=== PATIENT | female | born 1960 | race Caucasian/White ===

== ENCOUNTER 2023-05-12 08:23 | Emergency (ER) | payer OTHER, SELFPAY ==
[2023-05-12 08:31] VITALS: BP 131/55; PULSE 87; RESP 18; TEMP 36.8; O2SAT 98
--- NOTE | 2023-05-12 08:53 | ED.URI ---
HPI - URI/Sore Throat General Chief Complaint: Upper Respiratory Infection Stated Complaint: Congestion/diarrhea/chills Time Seen by Provider: 05/12/23 08:40 Source: patient, RN notes reviewed and old records reviewed Mode of arrival: ambulatory Limitations: no limitations History of Present Illness HPI Narrative: 62 year female presents to [facility] with complaints of illness since Saturday with complaints of diarrhea, cough, chills, sore throat, nasal drainage. Patient has been taking DayQuil and NyQuil for her symptoms. Patient reports that she did do a home COVID test on Saturday that did not even show a control line so she feels that she did not do it correctly. Patient reports diarrhea but does have history of Crohn's. MD elicited complaint: cough and sore throat Pertinent past history: other (Crohn's, rheumatoid arthritis) Onset (ago): day(s) (6) Pain scale (0-10): 4 Able to tolerate fluids by mouth: Yes Treatments prior to arrival: other (DayQuil and NyQuil) Related Data Allergies Allergy/AdvReac Type Severity Reaction Status Date / Time No Known Allergies Allergy Verified 05/12/23 08:45 Review of Systems Review of Systems: CONSTITUTIONAL: Reports malaise, chills, sweats, or fever. EYES: Denies visual changes, redness, or discharge. ENT: Reports rhinorrhea, congestion, sinus pain,no otalgia and positive for sore throat. CARDIOVASCULAR: Denies chest pain, palpitations, or edema. RESPIRATORY: Reports cough.? Denies dyspnea. GASTROINTESTINAL: Denies abdominal pain, nausea, vomiting, positive for diarrhea SKIN: Denies rash or itching. MUSCULOSKELETAL: Denies myalgia. NEUROLOGIC: Denies headache. All systems reviewed & are unremarkable except as noted in HPI and below PMFSH Past Medical History Medical History (Updated 05/13/23 @ 20:29 by Mariah Richmond NP) Bronchitis Crohn's disease of both small and large intestine without complication Ear infection Rheumatoid arthritis Sinusitis Surgical History Surgical History (Updated 05/13/23 @ 20:27 by Mariah Richmond NP) H/O total hysterectomy Social History Social History (Updated 05/13/23 @ 20:28 by Mariah Richmond NP) Smoking packs per day: 1 Smoking cigarettes per day: 20.0 Years smoked: 35 Smoking pack-years: 35.00 Smoking status: Current every day smoker Tobacco type: cigarettes Alcohol intake: current Alcohol use details: rare social Substance use type: does not use Living arrangements: with family Gender identity (if verbalized by the patient): Female Comments At time of signature, agree with nursing past medical, surgical, social and family history. There is no relevant family history pertinent to the presenting complaint Exam Narrative: GENERAL:Ill-appearing, well-nourished, and in no acute distress. HEAD: Normocephalic EYES: PERRLA, conjunctivae clear ENT: Nares clear, turbinates edematous and erythematous, clear discharge. Mucous membranes moist. TM pearly weber with dull light reflex bilaterally; no tragal tenderness. Oropharynx erythematous without lesions. Tonsils red enlarged and without exudate, no drooling, no hoarseness, no trismus, uvula midline.post nasal drainage NECK: Supple lymphadenopathy CHEST: Clear to auscultation, breath sounds equal. No wheezing, rhonchi, rales, or stridor. No respiratory distress, speaks in full sentences. cough, SAO2 98% on room air HEART: Regular rate and rhythm. No murmur heard. SKIN: Warm, dry, no rash. NEURO: Alert and oriented x3. PSYCH: Normal mood and affect Course Course Emergency Course: Patient is aware of diagnosis, understands and agrees to treatment plan.? Anticipatory guidance given.? Patient agrees to follow-up as directed and is aware of reasons to seek care at the emergency department. Portions of this record may have been created with voice recognition software Level of Care: Express Care Visit Vital Signs Fozia
== END 2023-05-12 09:22 | disposition home or self-care (01) ==
PROVIDERS: Emergency Provider Registered Nurse
DX: J02.0 Streptococcal pharyngitis (principal); F17.210 Nicotine dependence, cigarettes, uncomplicated; Z20.822 Contact with and (suspected) exposure to COVID-19
CPT/HCPCS: 87426; 87804; 87880; 99213; C9803; G0463

== ENCOUNTER 2024-12-21 13:19 | Emergency (ER) | payer OTHER, SELFPAY ==
[2024-12-21 13:28] VITALS: BP 114/79; PULSE 86; RESP 20; TEMP 36.7; O2SAT 97
--- OUTSIDE RECORDS SUMMARY | 2024-12-21 13:33 | XMS_ITS | Continuity of Care Document ---
Author Organization [facility] Address [address] [place] [address] Phone Care Team Providers Care Multimedia Editor Name Role Phone Gume Aviles MD Unavailable Unavailable Allergies, Adverse Reactions, Alerts Substance Reaction Status Criticality No Known Allergies Active No Inform ation Medications Medication Instructions Dosage Effective Dates (start - stop) Status Comments Prozac 10 mg capsule - Active FOLIC ACID (unknown strength) Not Available - Active Procedures Procedure Date Office/outpatient Visit, Est Office/outpatient Visit, Est Post-op Follow-up Visit Post-op Follow-up Visit Post-op Follow-up Visit Destruction Of Lesion,Conjunctiva Post-op Follow-up Visit Post-op Follow-up Visit Post-op Follow-up Visit Destruction Of Lesion,Conjunctiva No Charge Optomap Fundus Photos 016 Office/outpatient Visit, Est Eye Exam, New Patient Advance Directives Directive Yes / No Effective Date File Name No Information Encounters Encounter Description Practice Location Reason(s) For Visit Diagnoses Date Provider Providers Copied on Encounter Office/outpa tient Visit, Est [facility], [address], [place], [place], [address], [place] tel:[phone] SEC [place] DELEON Professional Follow up visit (chief complaint) Conjunctival lesion 7 Traci Dunaway. [address], [place], [place], [address], [place]. tel:[phone] Referring Provider: Ashley Thao OD, [facility] [address] [place] [address], [address]. tel:[phone] Office/outpa tient Visit, Est [facility], [address], [place], [place], [address], [place] tel:[phone] SEC Emmett DELEON Professional 3 month follow up (chief complaint) Conjunctival lesionNuclea r sclerosis of both eyes 6 Mateo Amanda. [address], [place], [place], [address], [place]. tel:[phone] Referring Provider: Ashley Thao OD, [facility] [address] [place] [address], [address]. tel:[phone] [facility], [address], [place], [place], [address], [place] tel:[phone] SEC Emmett DELEON Professional Post Op (chief complaint) No Information 6 Mateo Amanda. [address], [address] [place], [address], [place]. tel:[phone] Referring Provider: Ashley Thao OD, [facility] [address] [place] [address], [address]. tel:[phone] [facility], [address] [place] [address] [address], [place], [place], [address], [place] tel:[phone] SEC Emmett DELEON Professional 1 week PO Cryo (chief complaint) No Information 6 Mateo Amanda. [address], [address], [place], [place], [address], [place]. tel:[phone] Referring Provider: Ashley Thao OD, [facility] [address] [facility], [place], [address]. tel:[phone] Formerly [facility], [facility] [address], [place], [place], [address], [place] tel:[phone] SEC [place] Professional F/u exam, postop (chief complaint) No Information 6 Mateo Amanda. [address] [facility] [facility], [place], [place], [address], [place]. tel:[phone] Referring Provider: Ashley Thao OD, [facility] [address] [facility], [place], [address]. tel:[phone] [facility]ly [facility], [facility] [address], [place], [place], [address], [place] [phone] [facility] No Information 6 Suzy Limon. [facility] [address], [address], [place], [place], [address], [place]. tel:[phone] Referring Provider: Ashley Thao OD, [facility] [address] [facility], [place], [address]. tel:[phone] Formerly [facility], [facility] [employer] [facility] [employer] [address], [place], [place], [address], [place] [phone] SEC [place] Professional F/u exam, postop (chief complaint) No Information 6 Suzy Braxton. [facility] [address], [address], [place], [place], [address], [place]. tel:[phone] Referring Provider: Ashley Thao OD, [facility] [address] [facility], [place], [address]. tel:[phone] [facility], [facility] [place] [facility] [employer] [facility] [address], [place], [place], [address], [place] tel:[phone] SEC [place] Professional F/u exam, postop (chief complaint) No Information 6 Mateo Amanda. [address], [place], [place], [address], [place]. tel:[phone] Referring Provider: Ashley Thao OD, [facility] [address] [place], [address]. tel:[phone] [facility], [facility] [address], [place], [place], [address], [place] tel:[phone] SEC [place] Professional F/u exam, postop (chief complaint) No Information 6 Mateo Amanda. [address], [address] [place], [address], [place]. tel:[phone] Referring Provider: Ashley Thao OD, [facility] [address] [place], [address]. tel:[phone] [facility], [facility] [address], [place], [place], [address], [place] tel:[phone] [facility] No Information 6 Suzy Braxton. [facility] [address], [address], [place], [place], [address], [place]. tel:[phone] Referring Provider: Ashley Thao OD, [facility] [address] [place], [address]. tel:[phone] Office/outpa tient Visit[facility], [address], [place], [place], [address], [place] tel:[phone] SEC [place] Professional floaters (chief complaint) No Information 6 Eucha Braxton. [facility] [address], [address], [place], [place], [address], [place]. tel:[phone] Referring Provider: Vasiliy Rob, [address], [place], [address] . tel:[phone] [facility]ly [facility] Eye [facility], [address], [place], [place], [address], [place] tel:[phone] STEVE DELEON Professional Nodular Episcleritis OD (chief complaint) No Information 6 Mateo Amanda. [address] [facility] [address], [place], [place], [address], [place]. tel:[phone] Referring Provider: Vasiliy Rob, [address], [place], [address] . tel:[phone] Family History Family Member Type Diagnosis Age At Onset Paternal grandmother Problem (finding) Diabetes mellit us Payers Payer name Insurance type Covered libertarian ID Authorjaretha rafatrashida(s) [facility] Commercial CI [id number] Social History Type Description Quantity Date Captured Comments Alcohol Use Details Unknown Caffeine Use Details Unknown Tobacco Use Status Heavy cigarette smok er (20-39 cigs/day) Smoking Status Heavy tobacco smoker Sex Female Chief Complaint And Reason For Visit From encounter dated '01/07/2017 15:15'. Follow up visit (chief complaint). Description: The 56 year old female presents for a 6 month IOP check. Patient denies any changes in vision ou. Patient has hx of excisional biopsy of right limbal conj. lesion. Patient uses systane bid ou. Reason For Referral Reason For Referral No Information Plan Of Treatment Date Type Action Status Goal Tobacco cessation counseling completed Goal Tobacco cessation counseling completed History Of Present Illness Encounter Date Complaint History Of Prese nt Illness Follow up visit The 56 year old female presents for a 6 month IOP check. Patient denies any changes in vision ou. Patient has hx of excisional biopsy of right limbal conj. lesion. Patient uses systane bid ou. 3 month follow up The 55 year ol d female presents for 3 month follow up in the right eye. 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 Pt states no chnages since last exam. Pt states no pain/discomfort. Pt using AFT 2-3 times a day, AFT erin QHS. 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 Pt states 1.5 weeks ago she developed a sore throat which went into an ear infection and had swelling of OD and soreness around orbit temporal lasting 2-3 days. Pt went to PCP and was put on antibiotics, is finished taking at this time. Pt denies any pain at this time but experiences a pulling feeling superior OD x 1.5 weeks and feels her OD sticks our farther than OS. Pt states v/a OU seems stable. Pt is not using any gtts. 1 week PO Cryo The 55 year old female presents for 1 week PO Cryo in the right eye. Pt using Pred QID OD and Poly QID OD. Pt states she still has a red spot on OD but states she is not having any pain, irritation or discomfort. Pt states no problems OU and VA seems stable. F/u exam, postop The 55 year old female presents for a 1 day post op to Cryo ablasion of biopsy site from carcinoma excision OD. Patient to begin Pred and Poly qid OD. Patient denies any pain or discomfort. F/u exam, postop The 55 year old female presents for post op of conj. lesion removal with biopsy OD. Patient saw Dr. Galindo last week for post op and biopsy results. Dr. Galindo wanted patient to see Dr. Almonte today. Patient states OD is doing good. Patient is using Pred tid OD and ran out of Poly. F/u exam, postop The 55 year old female presents for a 2 week post op conj excision of lesion OD. Patient is using Pred and Poly qid OD. Patient c/o OD was doing ok and now sees another bump. Patient is anxious for results of biopsy. F/u exam, postop The 55 year old female presents fora 1 day post op to Excisional Biopsy of right Limbal conj. lesion OD. Patient to begin Poly and Pred qid OD. Patient denies any pain or discomfort. floaters The 55 year old female presents for a evaluation of Conj. lesion OD per Dr. Galindo. Patient ran out of Pred 3 days ago. Nodular Episcleritis OD The 55 y ear old female presents for evaluation of Nodular Episcleritis OD. Pt is currently using Prednisolone TID OU. Pt states that OU has been red and irritated for last several months and only OD developed nodules. Pt has hx of RA, Crohn's Disease. Pt is currently in Crohn's remission. Pt has noticed floaters but no flashes. Functional Status Date Functional Assessmen t No Information Instructions Date Instruction Additional Infor dean Conjunctival lesion - Educational material given Related to Conjunctival lesion Impression/Plan - OD looks good, IOP within normal range. Return to clinic in 6 months for follow up with Dr Galindo or sooner with any problems. Follow up - Return i n 6 months with Vasiliy Galindo M.D. for follow up exam. Impression/Plan - Th ere is no evidence of recurrence of conjunctival tumor. The vision is stable. Patient states the eyes are more comfortable since she began using the AFT TID and the AFT gel at night. Recommend patient continue this regimen OU. Recommend patient return in 6 months or sooner with problems. 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 There is one small elevation at the limbus at 8:00 that was measured today and we will follow closely. Recommend patient increase the use of AFT to 2-3 times daily and continue the use of AFT erin QHS. Informed patient we will send a letter to Inderjit Smalls MD regarding her previous diagnosis and treatment. Recommend patient return in 3 months or sooner with problems. Follow up - 3 month follow up Impression/Plan - 1 week PO s/p Cryo ablation of biopsy site from conjunctival carcinoma excision OD. Patient is healing well. There is no evidence of recurrence of the carcinoma upon todays exam. Instructed patient to stop the Polytrim as of today. Patient will continue the Prednisolone QID OD for 1 week, then BID x 2 weeks, then stop. Recommend patient return in 1 month or sooner. Follow up - Return t o clinic in 1 month for f/u Follow up - Return t o clinic as scheduled Impression/Plan - 1 day PO Cryo Ablation of the biopsy site from carcinoma excision OD. Patient is healing well and is experiencing little to no discomfort. Recommend she return in 1 week or sooner with problems. sched cryo OD Related to Surge ry follow-up examination Impression/Plan - Di scussed dx with pt. Discussed Cryo for additional treatment. Explained this type of cancer can manifest itself within various parts of her body. Would rec regular exams with her PCP and she understands we will monitor her closely as well. Discussed r/a/b of this procedure and she understands she can schedule when desired. Related to Surgery follow-up examination Follow up - sched cryo OD Relate d to Surgery follow-up examination Impression/Plan - Di scussed results of Conjunctival Excisional Biopsy OD today. 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 There is no clinical evidence of recurrence at this time. Given these results, patient will follow up with Dr. Almonte again next Saturday to discuss next steps in treatment. Letter sent to Dr. Thao. Follow up - Follow u p on Saturday with LAG - No dilation required Impression/Plan - 1 Day PO s/p Conjunctival lesion removal OD. Patient is healing well and there is no further conjunctival lesion present. Explained it may take a few days to 1 week to have the result of the biopsy and we will contact her once we receive the report. Medication instillation reviewed with patient. Recommend she return in 2 weeks or sooner with problems. Follow up - 2 week P O from conjunctival lesion removal Impression/Plan - Di scussed conjunctival lesion OD. Explained to patient there are several different things it could be. Discussed the possibility of atypical pingueculitis, a form of skin cancer or a Rheumatoid nodule. Recommend the lesion be removed and biopsied for an answer. Schedule patient for conjunctival lesion removal OD at the surgery center. Risks, benefits and alternatives pertaining to conjunctival lesion removal reviewed with patients. Patient elects to proceed with conjunctival lesion removal. Follow up - Schedule Conjunctival Lesion removal with biopsy OD Conjunctival lesion - Educational material provided Related to Conjunctival lesion Follow up - Refer to LAG for evaluation and treatment. Appt. scheduled for next Saturday Impression/Plan - Di scussed conjunctival lesion on temporal OD. 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 Lesion has some features on exam today that are concerning for possible conjunctival SAVANNAH/squamous cell carcinoma including a dilated feeder vessels, corkscrew vessels, and mild leukoplakia. Lesion may also less likely represent atypical pingueculitis. Refer to Dr. Almonte (cornea specialist) for evaluation and treatment. Appointment made for next week. Letter sent to Dr. Thao from today's visit. Assessments Type Assessment Date assessment Conjunctival lesion Patient Care Teams Name Effective Dates (start - stop) Status Members No Information
--- OUTSIDE RECORDS SUMMARY | 2024-12-21 13:33 | XMS_ITS | Data Portability ---
[facility] [address] [place] [address] Care Team Providers Care Tick Sewer Name Role Phone AMY SIN Primary Care Provider MAGGY MICHEL Seo Consultant Assessment No assessment recorded. Plan of Treatment Reminders Order Date Submit Date Provider Last Modified By Organization Details Last Modified Time Details Appointments ANY 15 2024 09:30A M NADEGE ReddyN, NOODLE CATALYST MAKER-C Not available Not available Not available Lab TSH, ultra-sen sitive, serum 2024 025 NAYA [facility], [address], [place], [address], 08/12/2024 12:09:45 CMP, serum or plasma 2024 025 NAYA [facility], [address], [place], [address], 08/12/2024 12:09:44 lipid panel, serum 2024 025 NAYA [facility], [address], [place], [address], 08/12/2024 12:09:42 CBC 2024 025 NAYA [facility], [address], [place], [address], 08/12/2024 12:09:51 cobalamin and folate panel, serum 2024 025 NAYA [facility], [address], [place], [address], 08/12/2024 12:09:46 vitamin D, 25-hydrox y, total, serum 2024 025 NAYA [facility], [address], [place], [address], 08/12/2024 12:09:52 ELDER (antinucl ear antibodie s) screen, serum 2024 025 NAYA [facility], [address], [place], [address], 08/12/2024 12:09:41 testoster one, total, serum 2024 025 NAYA [facility], [address], [facility] [address], [place], [address], 08/12/2024 12:09:47 prolactin , serum 2024 025 NAYA [facility], [address], [place], [address], 08/12/2024 12:09:48 amylase + lipase, serum 2024 025 NAYA [facility], [address], [place], [address], 08/12/2024 12:09:50 Referral None recorded. Procedures None recorded. Surgeries None recorded. Imaging None recorded. Medication Orders None recorded. Patient TargetsNo targets recorded. Patient Instructions Encounter Date Encounter Id Patient Instructions Last Modified By Organization Details Last Modified Time 08/11/2024 [id number] influenza (flu) vaccine: care instructions Not available 08/11/2024 14:41:49 A healthy lifestyle: care instructions Not available 08/11/2024 14:41:49 Quitting Tobacco : Care Instructions Not available 08/11/2024 14:41:48 Increase intake of fresh fruits, and vegetables. Avoid packaged foods and fast foods. Follow a low salt diet, drink at least 8-10 8oz glasses of water a day, exercise most days of the week. Take all medications as prescribed. Keep appointments with PCP and all specialists. Not available 08/12/2024 13:17:02 dwp labs needed, plan pending results Not available 08/12/2024 13:17:11 Reason for Referral None Reported. Results Created Date Observation Date Name Description Value Unit Range Abnormal Flag Note LastModifiedBy Organization Detail LastModifiedTime 08/11/1908/12/2024 ANTIN UCLEA R AB MULTI PLEX RFX 9 ELDER direct NEGATI VE negati ve Not Available [facility] ([facility]) [address] [place], [address], 08/12/2024 12:09:41 08/11/19 25 08/12/2024 LIPID PANEL cholesterol, total 322 mg/dL 100-19 9 above high normal Not Available [facility] ([facility]) [address] [place], [address], 08/12/2024 12:09:42 08/11/19 25 08/12/2024 LIPID PANEL triglyceride s 249 mg/dL 0-149 above high normal Not Available [facility] ([facility]) [address] [place], [address], 08/12/2024 12:09:42 08/11/19 25 08/12/2024 LIPID PANEL HDL cholesterol 50 mg/dL >39 Not Available [facility] ([facility]) [address] [place], [address], 08/12/2024 12:09:42 08/11/19 25 08/12/2024 LIPID PANEL VLDL cholesterol evans 50 mg/dL 5-40 above high normal Not Available [facility] ([facility]) [address] [place], [address], 08/12/2024 12:09:42 08/11/19 25 08/12/2024 LIPID PANEL LDL chol calc ([facility]) 222 mg/dL 0-99 above high normal Not Available [facility] ([facility]) [address] [facility], [place], [address], 08/12/2024 12:09:42 08/11/19 25 08/12/2024 LIPID PANEL LDL calc comment: COMMEN T Consi leonid evalu ating for Famil ial Hyper felix stero lemia (FH), if clini jovanny indic ated. Not Available [facility] ([facility]) [address] [facility], [place], [address], 08/12/2024 12:09:42 08/11/19 25 08/12/2024 COMP. METAB OLIC PANEL (14) glucose 81 mg/dL 70-99 Not Available [facility] ([facility]) [address] [facility], [place], [address], 08/12/2024 12:09:44 08/11/19 25 08/12/2024 COMP. METAB OLIC PANEL (14) BUN 14 mg/dL 8-27 Not Available [facility] ([facility]) [address] [facility], [place], [address], 08/12/2024 12:09:44 08/11/19 25 08/12/2024 COMP. METAB OLIC PANEL (14) creatinine 0.86 mg/dL 0.57-1 .00 Not Available [facility] ([facility]) [address] [facility], [place], [address], 08/12/2024 12:09:44 08/11/19 25 08/12/2024 COMP. METAB OLIC PANEL (14) eGFR 76 mL/mi n/1.7 3 >59 Not Available [facility] ([facility]) [address] [place], [address], 08/12/2024 12:09:44 08/11/19 25 08/12/2024 COMP. METAB OLIC PANEL (14) BUN/creatini ne ratio 16 12-28 Not Available [facility] ([facility]) [address] [place], [address], 08/12/2024 12:09:44 08/11/19 25 08/12/2024 COMP. METAB OLIC PANEL (14) sodium 138 mmol/ L 134-14 4 Not Available [facility] ([facility]) [address] [place], [address], 08/12/2024 12:09:44 08/11/19 25 08/12/2024 COMP. METAB OLIC PANEL (14) potassium 5.0 mmol/ L 3.5-5. 2 Not Available [facility] ([facility]) [address] [place], [address], 08/12/2024 12:09:44 08/11/19 25 08/12/2024 COMP. METAB OLIC PANEL (14) chloride 99 mmol/ L 96-106 Not Available [facility] ([facility]) [address] [place], [address], 08/12/2024 12:09:44 08/11/19 25 08/12/2024 COMP. METAB OLIC PANEL (14) carbon dioxide, total 23 mmol/ L 20-29 Not Available [facility] ([facility]) [address] [facility] [place], [address], 08/12/2024 12:09:44 08/11/19 25 08/12/2024 COMP. METAB OLIC PANEL (14) calcium 10.5 mg/dL 8.7-10 .3 above high normal Not Available [facility] ([facility]) [address] [facility] [place], [address], 08/12/2024 12:09:44 08/11/19 25 08/12/2024 COMP. METAB OLIC PANEL (14) protein, total 7.6 g/dL 6.0-8. 5 Not Available [facility] ([facility]) [address] [facility] [place], [address], 08/12/2024 12:09:44 08/11/19 25 08/12/2024 COMP. METAB OLIC PANEL (14) albumin 4.7 g/dL 3.9-4. 9 Not Available [facility] ([facility]) [address] [facility], [place], [address], 08/12/2024 12:09:44 08/11/19 25 08/12/2024 COMP. METAB OLIC PANEL (14) globulin, total 2.9 g/dL 1.5-4. 5 Not Available [facility] ([facility]) [address] [facility], [place], [address], 08/12/2024 12:09:44 08/11/19 25 08/12/2024 COMP. METAB OLIC PANEL (14) bilirubin, total 0.4 mg/dL 0.0-1. 2 Not Available [facility] ([facility]) [address] [facility], [place], [address], 08/12/2024 12:09:44 08/11/19 25 08/12/2024 COMP. METAB OLIC PANEL (14) alkaline phosphatase 88 IU/L 44-121 Not Available [facility] ([facility]) [address] [facility], [place], [address], 08/12/2024 12:09:44 08/11/19 25 08/12/2024 COMP. METAB OLIC PANEL (14) AST (SGOT) 17 IU/L 0-40 Not Available [facility] ([facility]) [address] [facility], [place], [address], 08/12/2024 12:09:44 08/11/19 25 08/12/2024 COMP. METAB OLIC PANEL (14) ALT (SGPT) 13 IU/L 0-32 Not Available [facility] ([facility]) [address] [facility], [place], [address], 08/12/2024 12:09:44 08/11/19 25 08/12/2024 TSH RFX ON ABNOR MAL TO FREE T4 TSH 2.470 uIU/m L 0.450- 4.500 Not Available [facility] ([facility]) [address] [place], [address], 08/12/2024 12:09:45 08/11/19 25 08/12/2024 VITAM IN B12 AND FOLAT E vitamin B12 549 pg/mL 232-12 45 Not Available [facility] ([facility]) [address] [facility], [place], [address], 08/12/2024 12:09:46 08/11/19 25 08/12/2024 VITAM IN B12 AND FOLAT E folate (folic acid), serum 16.8 NG/mL >3.0 A serum folat e dhruv ntrat ion of less than 3.1 ng/mL is consi dered to repre sent clini evans defic iency . Not Available [facility] ([facility]) [address] [facility], [place], [address], 08/12/2024 12:09:46 08/11/19 25 08/12/2024 TESTO STERO NE testosterone 39 NG/dL 3-67 Not Available [facility] ([facility]) [address] [facility], [place], [address], 08/12/2024 12:09:47 08/11/19 25 08/12/2024 PROLA CTIN prolactin 5.5 NG/mL 3.6-25 .2 Not Available [facility] ([facility]) [address] [place], [address], 08/12/2024 12:09:48 08/11/1908/12/2024 ANTON+L IPASE amylase 69 U/L 31-110 Not Available [facility] ([facility]) [address] [place], [address], 08/12/2024 12:09:49 08/11/1908/12/2024 ANTON+L IPASE lipase 36 U/L 14-72 Not Available [facility] ([facility]) [address] [facility], [place], [address], 08/12/2024 12:09:49 08/11/1908/12/2024 CBC, PLATE LET, NO DIFFE RENTI AL WBC 10.3 x10e3 /uL 3.4-10 .8 Not Available [facility] ([facility]) [address] [facility], [place], [address], 08/12/2024 12:09:51 08/11/1908/12/2024 CBC, PLATE LET, NO DIFFE RENTI AL RBC 5.25 x10e6 /uL 3.77-5 .28 Not Available [facility] ([facility]) [address] [facility], [place], [address], 08/12/2024 12:09:51 08/11/1908/12/2024 CBC, PLATE LET, NO DIFFE RENTI AL hemoglobin 16.7 g/dL 11.1-1 5.9 above high normal Not Available [facility] ([facility]) [address] [place], [address], 08/12/2024 12:09:51 08/11/1908/12/2024 CBC, PLATE LET, NO DIFFE RENTI AL hematocrit 51.2 % 34.0-4 6.6 above high normal Not Available [facility] ([facility]) [address] [place], [address], 08/12/2024 12:09:51 08/11/1908/12/2024 CBC, PLATE LET, NO DIFFE RENTI AL MCV 98 fL 79-97 above high normal Not Available [facility] ([facility]) [address] [place], [address], 08/12/2024 12:09:51 08/11/1908/12/2024 CBC, PLATE LET, NO DIFFE RENTI AL MCH 31.8 pg 26.6-3 3.0 Not Available [facility] ([facility]) [address] [place], [address], 08/12/2024 12:09:51 08/11/19 25 08/12/2024 CBC, PLATE LET, NO DIFFE RENTI AL MCHC 32.6 g/dL 31.5-3 5.7 Not Available [facility] ([facility]) [address] [facility], [place], [address], 08/12/2024 12:09:51 08/11/19 25 08/12/2024 CBC, PLATE LET, NO DIFFE RENTI AL RDW 12.9 % 11.7-1 5.4 Not Available [facility] ([facility]) [address] [facility], [place], [address], 08/12/2024 12:09:51 08/11/1908/12/2024 CBC, PLATE LET, NO DIFFE RENTI AL platelets 517 x10e3 /uL 150-45 0 above high normal Not Available [facility] ([facility]) [address] [place], [address], 08/12/2024 12:09:51 08/11/1908/12/2024 VITAM IN D, 25-HY DROXY vitamin D, 25-hydroxy 19.5 NG/mL 30.0-1 00.0 below low normal Vitam in D defic iency has been defin ed by the Insti tute of Medic ine and an Endoc rine Socie ty pract ice guide line as a level of serum 25-OH vitam in D less than 20 ng/mL (1,2) . The Endoc rine Socie ty went on to furth er defin e vitam in D insuf ficie ncy as a level betwe en 21 and 29 ng/mL (2). 1. IOM (Inst itute of Medic ine). 2010. Yayna ry refer ence selma es for calci um and DPoly tee [place]: The [facility] Press . 2. Rosenda olivo MF, Apolinar perez [place], [place] off-F errar i RUTH, et al. Evalu ation , treat ment, and preve ntion of vitam in D defic iency : an Endoc rine Socie ty clini evans pract ice guide line. JCEM. 2010; 96(7) :1911 -30. Not Available [facility] ([facility]) [address] [facility], [place], [address], 08/12/2024 12:09:52 08/28/1908/28/2024 US, abdom en, compl ete No observ ation record ed. [address], [address], 09/09/2024 14:35:51 Result Notes None recorded. Problems Name Problem SNOMED Code Status Onset Date Resolution Date Notes Provider Name and Address Organization Details Recorded Time Excessive growth of facial hair 237267891 Active 025 Amy Sin APN, FNP-C Attn: Quynh g,[address] [facility], [place], [place], [address] [place] [address] 2, [facility] 5 14:40:01 Smoker 11352421 Active 025 Amy Sin APN, FNP-C Attn: Quynh g,[address] [facility], [place], [address], [facility] 5 14:41:02 Overweight 502085828 Active 025 Amy Sin APN, FNP-C Attn: Quynh g,[address] [facility], [place], [address], [facility] 5 14:41:04 Right upper quadrant pain 560435199 Active 025 Amy Sin APN, FNP-C Attn: Quynh g,[address] [facility], [place], [address], [facility] 5 13:17:22 Problem Notes None recorded. Procedures Surgical History Date Name Laterality Status Provider Name and Address Organization Details Recorded Time 07/22/18 96 Total hysterectomy completed Genoveva Bunch [facility] 08/11/2024 14:15:23 Imaging Results None recorded. Procedure Notes None recorded. Medical Equipment None Reported. Allergies No known drug allergies Medications Name Sig Start Date Stop Date Status Note LastModified by Organization Details LastModified Time atorvastatin 80 mg tablet Take 1 tablet every day by oral route. 2024 active Not Available Not Available Not Avai lable spironolactone 100 mg tablet active Not Available Not Availabl e Not Available Vitals Date Recorded Body height Body mass index (BMI) Body weight Oxygen saturation Oxygen saturation in Arterial blood by Pulse oximetry Respiratory rate Body temperature Heart rate Systolic blood pressure Diastolic blood pressure Provider Name and Address Organization Details Last Updated DateTime 5 163.83 cm 27.4 kg/m2 94752.9 6 g 99 % 99 % 16 /min 97.5 [degF] 74 /min 112 mm[Hg] 72 mm[Hg] [facility] [place] [facility] 14:26:11 Social History Question Answer Notes LastModified by Organizat ion Details LastModified Time Tobacco Smoking Status Current Every Day Smoker JAX Rene[facility] 08/11/2024 14:18:05 Are You Blind Or Do You Have Difficulty Seeing? No Information not available 08/11/2024 What Is Your Level Of Caffeine Consumption? Heavy Coffee Information not available 08/11/2024 In The 14 Days Before Symptom Onset, Have You Had Close Contact With A Laboratory-confi rmed COVID-19 While That Case Was Ill? No Information not available 08/11/2024 In The 14 Days Before Symptom Onset, Have You Had Close Contact With A Person Who Is Under Investigation For COVID-19 While That Person Was Ill? No Information not available 08/11/2024 Have You Been To An Area Known To Be High Risk For COVID-19? No Information not available 08/11/2024 Are You Deaf Or Do You Have Serious Difficulty Hearing? No Information not available 08/11/2024 What Type Of Diet Are You Following? REGULAR Information not available 08/11/2024 Are There Any Guns Present In Your Home? Yes Information not available 08/11/2024 What Was The Date Of Your Most Recent Tobacco Screening? 08/11/2024 Information not available 08/11/2024 How Many Children Do You Have? 2 1 Child Gaurdianship Of Grandson Information not available 08/11/2024 What Is Your Relationship Status? Information not available 08/11/2024 Do You Use Your Seat Belt Or Car Seat Routinely? Yes Information not available 08/11/2024 Do You Have Smoke And Carbon Monoxide Detectors In Your Home? Yes Information not available 08/11/2024 At What Age Did You Start Smoking Tobacco? 14 Information not available 08/11/2024 Are You Passively Exposed To Smoke? Yes Information not available 08/11/2024 How Much Tobacco Do You Smoke? 1 PPD Information not available 08/11/2024 Do You Use Sunscreen Routinely? Yes Information not available 08/11/2024 Has Tobacco Cessation Counseling Been Provided? No Information not available 08/11/2024 How Many Years Have You Smoked Tobacco? 60 08/11/24 Information not available 08/11/2024 Sex: Female Functional Status Question Answer Note LastModified by Organizat ion Details LastModified Time Do you use any illicit or recreational drugs? Yes occ marijuanna Information not available 08/11/2024 Do you or have you ever used any other forms of tobacco or nicotine? No Information not available 08/11/2024 What is your level of alcohol consumption? None Information not available 08/11/2024 Are you currently employed? No retired Information not available 08/11/2024 Are you able to care for yourself? Yes Information not available 08/11/2024 What is your exercise level? None Information not available 08/11/2024 Mental Status Question Answer Note LastModified by Organization D etails LastModified Time Do you feel stressed (tense, restless, nervous, or anxious, or unable to sleep at night)? [id number] Information not available 08/11/2024 Family History Relationship Description Onset Age of this Age Resolved Age Notes LastModified by Organization Details LastModified Time Paternal Grandmother Diabetes mellitus [email or web address] Not available 07/23 14:16:05 Father Myocardial infarction 44 jschulterma Not available 14:16:21 Mother Malignant neoplasm of lung jschulterma Not available 07/23 14:16:54 Brother Hypercholest erolemia jschulterma Not available 07/23 11:00:14 Medical History Condition Response Coronary Artery Disease N Atrial Fibrillation N High Blood Pressure N Depression N COPD N Blood Clots N Anxiety Disorder N Muscle, Joint, or Bone Problems N Arthritis Y Acid Reflux (GERD) N Cancer Y Stroke N High Cholesterol N Liver Disease N Schizophrenia N Headaches N Thyroid Problems N Kidney or Bladder Problems N GI Problems Y Have you had a mammogram in the last yea r? N Eating Disorder N Skin Problems N Anemia N Heart Attack ([place]) N Diabetes N Seizures/Epilepsy N Have you had a colonoscopy in the last 1 0 years? N Asthma N Allergies Y Substance Abuse N Hepatitis N Heart Failure N Osteoporosis N Gynecological History Statement/Question Response Menses Monthly Y Age at Menarche 14 Current Control Method Hysterectom y Age at First Child 22 Obstetrics History GPAL:G 2 P 2 0 0 1 Type Value Full Term 2 Living 1 Total 2 Immunizations Vaccine Type Date Status Note Provider Nam e and Address Organization Details Recorded Time zoster recombinant 9 completed Amy Sin APN, FNP-C Attn: Accounting,[address] [place], [address], [facility] 08/11/2024 14:38:28 COVID-19, mRNA, LNP-S, PF, 30 mcg/0.3 mL dose 1 completed Amy Sin APN, FNP-C Attn: Accounting,[address] [facility], [place], [place], [address] [place] [address], [facility] 08/11/2024 14:38:28 COVID-19, mRNA, LNP-S, PF, 30 mcg/0.3 mL dose 1 completed Amy Sin, SENIOR WINDOWS SYSTEMS ADMINISTRATOR, NOODLE CATALYST MAKER-C Attn: Accounting,[address] [facility], [place], [place], [address] [place] [address], [facility] 08/11/2024 14:38:28 pneumococcal polysaccharide PPV23 9 completed Amy Sin, SENIOR WINDOWS SYSTEMS ADMINISTRATOR, NOODLE CATALYST MAKER-C Attn: Accounting,[address] [facility], [place], [place], [address] [place] [address], [facility] 08/11/2024 14:38:28 Tdap 9 completed Amy Sni, SENIOR WINDOWS SYSTEMS ADMINISTRATOR, NOODLE CATALY[employer] MAKER-C Attn: Accounting,[address] [facility], [place], [place], [address] [place] [address], [facility] 08/11/2024 14:38:28 Influenza, split virus, trivalent, PF 5 completed Amy Sin, SENIOR WINDOWS SYSTEMS ADMINISTRATOR, NOODLE CAT[employer] MAKER-C Attn: Accounting,[address] [facility], [place], [address] [place] [address], [facility] 08/11/2024 14:38:28 Hep A, ped/adol, 2 dose 0 completed Amy Sin, SENIOR WINDOWS SYSTEMS ADMINISTRATOR, NOODLE CATALY[employer] MAKER-C Attn: Accounting,[address] [facility], [place], [address] [place] [address], [facility] 08/11/2024 14:38:28 Influenza, split virus, quadrivalent, PF 9 completed Amy Sin, SENIOR WINDOWS SYSTEMS ADMINISTRATOR, NOODLE CATALYST MAKER-C Attn: Accounting,[address] [facility], [place], [address] [place] [address], [facility] 08/11/2024 14:38:28 Influenza, split virus, trivalent, preservative 5 completed Amy Sin, SENIOR WINDOWS SYSTEMS ADMINISTRATOR, NOODLE CATALYST MAKER-C Attn: Accounting,[address] [facility], [place], [address] [place] [address], [facility] 08/12/2024 13:16:42 Pneumococcal conjugate PCV20, polysaccharide [id number] conjugate, adjuvant, PF 5 completed Amy Sin APN, HOMER-C Attn: Accounting,[address], [place], [address], [place] [facility] [place] 08/12/2024 13:16:42 Past Encounters Encounter ID Performer Location Encounter Start Date Encounter Closed Date Diagnosis/Indication Diagnosis SNOMED-CT Code Diagnosis ICD10 Code Diagnosis Note [id number] Jolene rg, MD [facility] (Adult Med) [address] [place] [address] 08/11/2024 13:51:33 08/18/2024 10:12:25 Adult health examination 083003563 Z00.01 Encouraged routine TOOL STRAIGHTENER, vision, dental exams, well balanced diet. Excessive growth of facial hair 777557319 L68.2 on aldactone from derm Administra tion of influenza vaccine 03154742 Z23 Overweight 543304392 E66 .3 advised low fat, low cholestero l diet, regular exercise and weight reduction. Smoker 90645246 F17.200 Smoking cessation encouraged . Right uppe r quadrant pain 066036376 R10.11 exam wnl in office; states pain is random but more frequent if putting on socks;hx of crohns as well, intermitte nt pain, offered labs and US, pt would like to wait on US for nowpt also declines referral Fatigue 89151785 R53.83 will check labs Administra tion of pneumococcal vaccine 84266615 Z23 Health Concerns Section Related Observation LastModified by Organization Detai ls LastModified Time None Recorded Concern Status LastModified by Organization Details LastModified Time None Recorded Advance Directives Directive None Recorded Payers Encounter Date Sequence Insurance Name Policy Number Policy Shaw Covered Member ID Shaw Member ID Guarantor Name 08/11/2024 1 LULA CLAUDIO FROM [employer] ([employer]) [id number] Luiza Canales [id number] Luiza Canales Notes Date Note Type Note Provider Name and Address Organization Details Recorded Time 08/11/2024 text/html last pcp was dr caleb Velasquez in 2021 pt c/o hair growth on face- started almost a year ago. tried lazer hair removal and did not help. just started seeing feeder associate randi brown. saw dermatology and started on low dose bp meds but did not help. pt c/o fatigue right upper quadrant pain intermittent, Amy Liza, SENIOR WINDOWS SYSTEMS ADMINISTRATOR, [employer]ODLE [employer] MAKER-C Attn: Accounting,[address] [facility], [place], [address], [place] [facility] 08/12/2024 13:19:48 OBGyn Episode No OBEpisode recorded.
--- OUTSIDE RECORDS SUMMARY | 2024-12-21 13:33 | XMS_ITS | Clinical Summary ---
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 [employer],non-owned Affiliates and Associated Physician Practices is amultiple site organization consisting of ambulatory clinics and hospital sitesin [place] and [place]. This disclosure is being madepursuant to the Care Everywhere program and may not contain all information available regarding this patient. Last updated 18.[facility] [employer] Allergies Active Allergy Reactions Criticality Noted Date Comments Leflunomide 11/11/2014 Painful rash Cefaclor 09/16/2014 Methotrexate 10/06/2014 Elevated liver enzymes and severe hand peeling Hydroxychloroquine Urticaria,Itching 11/01/2014 Diclofenac Epolamine 10/06/2014 Elevated liver enzymes Medications * Be aware that medications may not be up to date on this document. Alwaysverify current medications with the patient. FLUoxetine (PROZAC) 40 MG capsule Take 40 mg by mouth 2 times daily. Active Acetaminophen- Codeine (TYLENOL/CODEI NE #3) 300-30 MG TABS Take by mouth. 1 1/2 tab bid prn Active folic acid (FOLVITE) 1 MG tablet Take 1 mg by mouth once daily. Active Multiple Vitamins-[place] als (HAIR/SKIN/BIN LS PO) Take by mouth once daily. Active Glucosamine-Ch ondroitin 2023-6854 MG/30ML LIQD Take by mouth 2 times daily. Active Multiple Vitamin (MULTI VITAMIN DAILY PO) Take by mouth once daily. Active Cyanocobalamin (VITAMIN B 12 PO) Take by mouth once daily. Active predniSONE (DELTASONE) 5 MG tablet Take 1 Tab by mouth once daily. 5 Active methylPREDNISo lone (MEDROL DOSEPAK) 4 MG tablet Take by mouth as directed. 21 Packet 0 5 Active predniSONE (DELTASONE) 5 MG tablet Take 1 Tab by mouth 2 times daily. 90 Tab 5 5 Active etanercept (ENBREL SURECLICK) 50 MG/ML injection Inject 50 mg subcutaneously every 7 days. 4 Pen 5 5 Active Active Problems Problem Noted Date Diagnosed Date Crohn's disease 09/19/2014 Rheumatoid arthritis 09/16/2014 Overview (05/29/2015): Family History Medical History Relation Name Comments Other Father heart attack Other Mother ra, cancer [facility] and lung Other Sister 2 ra, lymphoma Relation Name Status Comments Brother Alive 2 Father Mother Alive Sister 1 Alive 1 Sister 2 Social History Tobacco Use Types Packs/Day Years Used Date Smoking Tobacco: Every Day Smokeless Tobacco: Never Alcohol Use Standard Drinks/Week Comments No 0 (1 standard drink = 0.6 oz pur e alcohol) Comments Unknown Sex and Gender Information Value Date Recorded Sex Assigned at Not on file 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 Gender Identity Not on file Sexual Orientation Not on file Last Filed Vital Signs Vital Sign Reading Time Taken Comments Blood Pressure 128/80 11/15/2014 3:56 PM CDT Pulse 80 11/15/2014 3:56 PM CDT Temperature - - Respiratory Rate - - Oxygen Saturation - - Inhaled Oxygen Concentration - - Weight 79.4 kg (175 lb) 11/15/2014 3:56 PM CDT Height - - Body Mass Index - - Plan of Treatment Health Maintenance Due Date Last Done Comments COLOGUARD (AGES 45-75) - COL ON CA SCREENING 1961 COLON MONITORING 1961 COLONOSCOPY - COLON CA SCREENING 1961 CT COLONOGRAPHY - COLON CA SCREENING 1961 Colorectal Cancer Screening 1961 FIT - COLON CA SCREENING 1961 FLEX SIG - COLON CA SCREENING 1961 LIPID TESTING 1961 MAMMOGRAM 1961 HIV SCREENING 1976 HEPATITIS C SCREENING 08/02/1979 DTAP/TDAP/TD VACCINES (1 - Tdap) 1980 PNEUMOCOCCAL VACCINE 50+ (1 of 2 - PCV) 1980 ZOSTER VACCINE (1 of 2) 2011 COVID-19 VACCINE (1 - 2023-2 5 season) 2024 DEPRESSION SCREENING 07/22/2024 INFLUENZA VACCINE (Season Ended) 2025 Respiratory Syncytial Virus (RSV) Vaccine Pt: or over 60 yrs (1 - 1-dose 75+ series) 2036 HEPATITIS B VACCINE Aged Out No longe r eligible based on patient's age to complete this topic HIB VACCINE Aged Out No longer eligi ble based on patient's age to complete this topic HPV VACCINE Aged Out No longer eligi ble based on patient's age to complete this topic MENINGOCOCCAL (Group B) VACC INE SHARED DECISION-MAKING Aged Out No longer eligibl e based on patient's age to complete this topic MENINGOCOCCAL GROUPS A/C/Y/W VACCINE Aged Out No longer eligible b ased on patient's age to complete this topic Insurance Care Teams Utility Worker Film Processing Relationship Specialty Start Date End Date Barron Smalls MD PCP - General Internal Medicine 09/16/14 Jeremías Estrada MD Rheumatology 12/20/14
--- OUTSIDE RECORDS SUMMARY | 2024-12-21 13:33 | XMS_ITS | Data Portability ---
Author Organization [facility], Main Office Address [address] [place] [address] Assessment Encounter Date Assessment Date Assessment LastModified by Organization Details LastModified Time 09/24/2024 09/24/2024 right abdomen wi th pulling sensation. Now improved. Ultrasound shows gallstones but no signs cholecystitis. Suspect musculoskeletal issue, also incidental finding. Patient was reassured. Follow up p.r.nPoly byrne 1 Not available 09/24/2024 11:05:03 Plan of Treatment Reminders Order Date Submit Date Provider Last Modified By Organization Details Last Modified Time Details Appointments None recorded. Lab None recorded. Referral None recorded. Procedures colonoscopy screening (PROC) 2024 025 [facility] (Pre-Screen), [address] [place] [address], [address], 15:07:43 Surgeries None recorded. Imaging None recorded. Medication Orders Golytely 236 gram-22.74 gram-6.74 gram-5.86 gram oral solution 2024 025 [facility]ly [facility] [place], [facility] [address], [place], [address], 15:16:57 Patient TargetsNo targets recorded. Patient Instructions Encounter Date Encounter Id Patient Instructions Last Modified By Organization Details Last Modified Time 09/30/2024 [id number] GOLYTELY [email or web address] Not available 06/2025 15:16:17 PT NEEDS A SCREENING COLON . R/O POLYP . RECOMMEND A COLONOSOPY RISKS BENEFITS AND COMPLICATIONS WERE EXPLAINED TO PT . ( BLEEDING , PERFORATION , INFECTION , ) PT VERBALIZES UNDERSTANDING AND IS WILLING TO PROCEDE . [email or web address] Not available 09/30/2024 15:16:31 Reason for Referral None Reported. Results Created Date Observation Date Name Description Value Unit Range Abnormal Flag Note LastModifiedBy Organization Detail LastModifiedTime 09/15/1908/28/2024 US, abdom en No observ ation record ed. BARCODE Not Available 2024 13:00:00 09/17/19 25 08/28/2024 US, abdom en No observ ation record ed. BARCODE Not Available 2024 12:36:54 Result Notes None recorded. Problems Name Problem SNOMED Code Status Onset Date Resolution Date Notes Provider Name and Address Organization Details Recorded Time Abdominal pain 70728248 Active 2024 Juan kuhn MD [address] [facility], [place] [address], [place], [address], [employer] 12:58:12 Cholelithiasis without obstruction 52777044 Active 2024 Juan kuhn MD [address] [facility], [place] [address], [place], [address], [employer] 12:58:47 Problem Notes None recorded. Procedures Surgical History Date Name Laterality Status Provider Name and Address Organization Details Recorded Time Hysterectomy completed Giuliana mckinney Karlos [employer] 09/15/2024 12:23:04 Eye Surgery completed Giuliana Mcmillan Karlos [employer] [facility] 09/15/2024 12:23:17 Imaging Results None recorded. Procedure Notes None recorded. Medical Equipment None Reported. Allergies No known drug allergies Medications Name Sig Start Date Stop Date Status Note LastModified by Organization Details LastModified Time atorvastatin 80 mg tablet Take 1 tablet every day by oral route. active Not Available Not Available No t Available doxycycline hyclate 100 mg capsule Take 1 capsule twice a day by oral route. active Not Available Not Available No t Available spironolactone 100 mg tablet active Not Available Not Availabl e Not Available mupirocin 2 % topical ointment active Not Available Not Available Not Available Golytely 236 gram-22.74 gram-6.74 gram-5.86 gram oral solution DIRECTED 2024 active Not Available Not Available Not Avai lable Vitals Date Recorded Body height Body mass index (BMI) Body weight Body temperature Respiratory rate Heart rate Oxygen saturation Oxygen saturation in Arterial blood by Pulse oximetry Systolic blood pressure Diastolic blood pressure Provider Name and Address Organization Details Last Updated DateTime 162.56 cm 30.2 kg/m2 70491.2 6 g 98 [degF] 14 /min 68 /min 98 % 98 % 130 mm[Hg] 82 mm[Hg] Alison Jodi [employer] 10:34:00 Date Recorded Body height Body mass index (BMI) Body weight Heart rate Oxygen saturation Oxygen saturation in Arterial blood by Pulse oximetry Systolic blood pressure Diastolic blood pressure Provider Name and Address Organization Details Last Updated DateTime 162.56 cm 30.2 kg/m2 80603.2 6 g 70 /min 99 % 99 % 128 mm[Hg] 80 mm[Hg] JAX Doe [employer] 14:05:19 Social History Question Answer Notes LastModified by [employer] Details LastModified Time Tobacco Smoking Status Current Every Day Smoker JAX Doe [facility] 09/15/2024 12:22:48 Which Illicit Or Recreational Drugs Have You Used? Marijuana Information not available 09/15/2024 Sex: Unknown Functional Status Question Answer Note LastModified by [employer] Details LastModified Time Do you use any illicit or recreational drugs? Yes Information not available 09/15/2024 What is your level of alcohol consumption? None Information not available 09/15/2024 Mental Status None recorded. Family History Relationship Description Onset Age of this Age Resolved Age Notes LastModified by Organization Details LastModified Time Paternal Grandmother Diabetes mellitus Not available 2024 12:21:42 Father Myocardial infarction Not available 09/15 12:21:50 Mother Malignant neoplasm of lung Not available 2024 12:22:01 Medical History Condition Response CANCER: SPECIFY Y ARTHRITIS Y Abdominal Pain Y ALLERGIES/HAYFEVER Y GI PROBLEMS Y HIGH CHOLESTEROL / HYPERLIPIDEMIA Y Gynecological HistoryNo gynecological history recorded. Obstetrics History GPAL:G 0 P 0 0 0 0 Past Encounters Encounter ID Performer Location Encounter Start Date Encounter Closed Date Diagnosis/Indication Diagnosis SNOMED-CT Code Diagnosis ICD10 Code Diagnosis Note [id number] Juan rubi MD [facility] General Surgery [address] [facility] [facility] [address] [place] [address] 09/24/2024 10:16:19 09/24/2024 11:24:28 Abdominal pain 47817110 R10.9 Cholelithi asis without obstruction 05790917 K80.20 [id number] Ivon Mendez MD [facility] General Surgery [address] [facility] [address] [place] [address] 09/30/2024 14:02:34 09/30/2024 14:37:57 Screening for malignant neoplasm of colon 734159192 Z12.11 Health Concerns Section Related Observation LastModified by Organization Detai ls LastModified Time None Recorded Concern Status LastModified by Organization Details LastModified Time None Recorded Advance Directives Directive None Recorded Payers Encounter Date Sequence Insurance Name Policy Number Policy Shaw Covered Member ID Shaw Member ID Guarantor Name 09/24/2024 1 [facility] Luiza Canales [id number] Luiza Canales 09/30/2024 1 [facility] Luiza Canales [id number] Luiza Canales Notes Date Note Type Note Provider Name and Address Organization Details Recorded Time 09/24/2024 text/html Patient complain s of a pulling sensation below her right ribcage when she was bending over. Denies nausea, vomiting fevers chills change in bowel habits although she states she had bowel troubles since she was 13 years old. Today she denies abdominal pain. Also complains of infection in her face that she has had for several weeks Juan Morales MD [address] [facility], [facility] [address], [place], [address], [facility] [employer] 09/24/2024 12:58:52 09/30/2024 text/html PT WAS SEEN IN T HE OFFICE TODAY FOR COLON SCREENING . PT DENIES ABD PAIN /N/V/D/BLEEDING /WT LOSS. LAST COLON WAS X 10 YRS . SHE REPORTS SOME CONSTIPATION SX. Ivon Mendez MD [address] [facility], [facility] [address], [place], [address], [facility] [employer] 09/30/2024 15:16:59 OBGyn Episode No OBEpisode recorded.
--- OUTSIDE RECORDS SUMMARY | 2024-12-21 13:39 | XMS_ITS | Continuity of Care Document ---
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 [address], [address], [place], [place], [address], [place]. tel:[phone] Referring Provider: Ashley Thao OD, [facility] [address] [place] [address], [address]. 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 [address], [place], [place], [address], [place]. tel:[phone] Referring Provider: Ashley Thao OD, [facility] [address] [place] [address], [address]. tel:[phone] [facility], [address], [place], [place], [address], [place] tel:[phone] SEC Emmett DELEON Professional Post Op (chief complaint) No Information 6 Mateo Amanda. [address], [address] [place], [address], [place]. tel:[phone] Referring Provider: Ashley Thao OD, [facility] [address] [place] [address], [address]. tel:[phone] [facility], [address] [place] [address] [address], [place], [place], [address], [place] tel:[phone] SEC Emmett DELEON Professional 1 week PO Cryo (chief complaint) No Information 6 Mateo Amanda. [address], [place], [place], [address], [place]. tel:[phone] Referring Provider: Ashley Thao OD, [facility] [address] [facility], [place], [address]. tel:[phone] [facility], [facility] [address], [place], [place], [address], [place] tel:[phone] SEC [place] Professional F/u exam, postop (chief complaint) No Information 6 Mateo Amanda. [address] [facility], [place], [place], [address], [place]. tel:[phone] Referring Provider: Ashley Thao OD, [facility] [address] [facility], [place], [address]. tel:[phone] [facility], [facility] [address], [place], [place], [address], [place] [phone] [facility] No Information 6 Suzy Limon. [facility] [address], [address], [place], [place], [address], [place]. tel:[phone] Referring Provider: Ashley Thao OD, [facility] [address] [facility], [place], [address]. tel:[phone] [facility], [facility] [employer] [address], [place], [place], [address], [place] [phone] SEC [place] Professional F/u exam, postop (chief complaint) No Information 6 Suzy Braxton. [facility] [address], [address], [place], [place], [address], [place]. tel:[phone] Referring Provider: Ashley Thao OD, [facility] [address] [facility], [place], [address]. tel:[phone] [facility], [facility] [employer] [address], [place], [place], [address], [place] tel:[phone] SEC [place] Professional F/u exam, postop (chief complaint) No Information 6 Mateo Amanda. [address], [place], [place], [address], [place]. tel:[phone] Referring Provider: Ashley Thao OD, [facility] [address] [place], [address]. tel:[phone] [employer] [facility], [facility] [address], [place], [place], [address], [place] tel:[phone] SEC [place] Professional F/u exam, postop (chief complaint) No Information 6 Mateo Amanda. [address] [employer], [address], [place], [address], [place]. tel:[phone] Referring Provider: Ashley Thao OD, [facility] [address] [place], [address]. tel:[phone] [employer] [facility], [facility] [address], [place], [place], [address], [place] tel:[phone] [facility] No Information 6 Suzy Braxton. [facility] [address], [address], [place], [place], [address], [place]. tel:[phone] Referring Provider: Ashley Thao OD, [facility] [address] [place], [address]. tel:[phone] Office/outpa tient Visit, [facility], [address], [place], [place], [address], [place] tel:[phone] SEC [place] Professional floaters (chief complaint) No Information 6 [place] Braxton. [facility] [address], [address], [place], [place], [address], [place]. tel:[phone] Referring Provider: Vasiliy Rob, [address] [address], [place], [address] . tel:[phone] [facility], [address], [place], [place], [address], [place] tel:[phone] STEVE DELEON Professional Nodular Episcleritis OD (chief complaint) No Information 6 Mateo Amanda. [address] [employer] [employer], [address], [place], [place], [address], [place]. tel:[phone] Referring Provider: Vasiliy Rob, [address] [employer] [employer] [address], [place], [address] . tel:[phone] Family History Family Member Type Diagnosis Age At Onset Paternal grandmother Problem (finding) Diabetes mellit us Payers Payer name Insurance type Covered green party ID Authorjaretha rafatrashida(s) [facility] Commercial CI [id number] Social History Type Description Quantity Date Captured [...] Information Instructions Date Instruction Additional Infor dean Follow up - Return i n 6 months with Vasiliy Galindo M.D. for follow up exam. Impression/Plan - OD looks good, IOP within normal range. Return to clinic in 6 months for follow up with Dr Galindo or sooner with any problems. 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 The vision is stable. Patient states the eyes are more comfortable since she began using the AFT TID and the AFT gel at night. Recommend patient continue this regimen OU. Recommend patient return in 6 months or sooner with problems. Follow up - 3 month follow up Impression/Plan - No overt evidence of recurrence [...] in 3 months or sooner with problems. 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 Patient is healing well and is experiencing little to no discomfort. Recommend she return in 1 week or sooner with problems. Follow up - Return t o clinic as scheduled sched cryo OD Related to Surge ry follow-up examination Follow up - sched cryo OD Relate d to Surgery follow-up examination Impression/Plan - Di scussed dx [...] to Surgery follow-up examination Follow up - Follow u p on Saturday with LAG - No dilation required Impression/Plan - Di scussed results of Conjunctival [...] sent to Dr. Thao. Follow up - 2 week P O from conjunctival lesion removal Impression/Plan - 1 Day PO s/p Conjunctival [...] in 2 weeks or sooner with problems. Conjunctival lesion - Educational material provided Related to Conjunctival lesion Follow up - Schedule Conjunctival Lesion removal with biopsy OD Impression/Plan - Di scussed conjunctival lesion OD. [...] elects to proceed with conjunctival lesion removal. Impression/Plan - Di scussed conjunctival lesion on [...] sent to Dr. Thao from today's visit. Follow up - Refer to [facility] for evaluation and treatment. Appt. scheduled for next Saturday Assessments Type Assessment Date assessment Conjunctival lesion Patient Care Teams Name Effective Dates (start - stop) Status Members No Information
--- NOTE | 2024-12-21 13:50 | ED_ITS ---
HPI - Skin/Abscess/Foreign Bdy General Chief complaint: Skin/Abscess/Foreign Body Stated complaint: Insect Bite / Left Arm Time Seen by Provider: 12/21/24 13:40 Source: patient and RN notes reviewed Mode of arrival: ambulatory Limitations: no limitations History of Present Illness HPI narrative: 64-year-old female presents Express Care complaining of redness or swelling to her left forearm. Patient says she noticed approximately 4 days ago. 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 Patient also please at a bug bit her near her puncture site. Patient says she has recently on cephalexin for an infection on her face. Patient says her symptoms are improving on her face. Patient reports redness, swelling, tenderness to her left forearm. Patient denies any discharge, fevers, body aches, chills, or any other symptoms. Patient is unsure of her tetanus status. Related Data Home Medications ?Medication ?Instructions ?Recorded ?Confirmed ?Last Taken ?Type atorvastatin 80 mg tablet mg 12/21/24 Unknown History cephalexin 500 mg capsule mg 12/21/24 Unknown History ketoconazole 2 % topical cream applic topical 12/21/24 Unknown History spironolactone 100 mg tablet mg 12/21/24 Unknown History tacrolimus 0.1 % topical ointment topical 12/21/24 Unknown History Allergies Allergy/AdvReac Type Severity Reaction Status Date / Time No Known Allergies Allergy Verified 05/12/23 08:45 Review of Systems Review of Systems: CONSTITUTIONAL: Denies fever, chills, or sweats. EYES: Denies visual changes, redness, or discharge. ENT: Denies rhinorrhea, congestion, sore throat, or otalgia. CARDIOVASCULAR: Denies chest pain, palpitations, or edema. RESPIRATORY: Denies cough or dyspnea. GASTROINTESTINAL: Denies abdominal pain, nausea, vomiting, or diarrhea. GENITOURINARY: Denies dysuria or hematuria. SKIN: Positive for rash. MUSCULOSKELETAL: Denies back pain, joint pain, or myalgia. NEUROLOGIC: Denies headache, numbness, or weakness. PSYCHIATRIC: Denies anxiety or depression. All other systems reviewed are negative, except as documented in HPI. [facility] Past Medical History Medical History Bronchitis Ear infection Sinusitis Rheumatoid arthritis Crohn's disease of both small and large intestine without complication Surgical History Surgical History H/O total hysterectomy Social History Social History Smoking packs per day: 1 Smoking cigarettes per day: 20.0 Years smoked: 35 Smoking pack-years: 35.00 Smoking status: Current every day smoker Tobacco type: cigarettes Alcohol intake: current Alcohol use details: rare social Substance use type: does not use Living arrangements: with family Gender identity (if verbalized by the patient): Female Comments At the time of my signature, I reviewed and agree with the nursing past medical, surgical, social, and family history. There is no relevant family history pertinent to the patient complaint. Exam Narrative: GENERAL: This is a well-nourished, well-developed adult, in no apparent distress. They are non ill-appearing, nontoxic appearing. HEAD: normocephalic, atraumatic. EYES: Sclera clear/white. Conjunctiva normal. Vision is grossly intact. Extraocular movements intact EARS: External ears normal. Hearing grossly intact. NOSE: External nose normal THROAT: Mucous membranes moist NECK: Neck supple CARDIOVASCULAR: Regular rate and rhythm RESPIRATORY: Respiratory rate normal, respiratory effort nonlabored, no respiratory distress SKIN: Left forearm: area of erythema and swelling located to the proximal lateral anterior forearm. No elbow involvement. No pain with flexion, extension, pronation, supination of elbow. There is a single puncture site to the center of the wound. No central clearing. Area of erythema measuring approximately 4 cm x 4 cm. Area is indurated, no area of fluctuance. Exudate. Mild tenderness to palpation. NEURO: awake, alert, and oriented to person, place and time. There were no obvious focal neurologic abnormalities. EXTREMITIES: No joint tenderness, effusion, or edema noted. Course Course Emergency Course: Portions of this record may have been created with voice recognition software Level of Care: Express Care Visit Vital Signs Vital signs: Vital Signs Temperature 98.0 F 12/21/24 13:28 Pulse Rate 86 12/21/24 13:28 Respiratory Rate 20 12/21/24 13:28 Blood Pressure 114/79 12/21/24 13:28 Pulse Oximetry 97 12/21/24 13:28 Oxygen Delivery Room Air 12/21/24 13:28 Temperature 98.0 F 12/21/24 13:28 Pulse Rate 86 12/21/24 13:28 Respiratory Rate 20 12/21/24 13:28 Blood Pressure 114/79 12/21/24 13:28 Pulse Oximetry 97 12/21/24 13:28 Oxygen Delivery Room Air 12/21/24 13:28 Reviewed MDM - Skin/Abscess/Foreign Bdy MDM Narrative Medical decision making narrative: Patient likely developed cellulitis. Patient currently on cephalexin for previous infection. Will go ahead and add on doxycycline. Updated patient's tetanus today. Did not start Bactrim due to patient taking spironolactone which may increase her risk of hyperkalemia. Discussed physical exam findings. Advised supportive measures and signs/symptoms to go to the ER. Pt is appropriate for outpt treatment and f/u. Differential Diagnosis Differential diagnosis: Likely abscess of skin or subcutaneous tissue, cellulitis and insect bites Critical Care Time Critical Care Time Critical Care Time: No Discharge Plan Discharge Clinical Impression: Cellulitis Qualifiers: Site of cellulitis: extremity Site of cellulitis of extremity: upper extremity Laterality: left Qualified Code(s): L03.114 - Cellulitis of left upper limb Patient Disposition: Home Condition: Stable Instructions: Antibiotic Form, Cellulitis (ED) Additional Instructions: Clean with soap and water only; Avoid using alcohol and peroxide. You may take Tylenol or ibuprofen as needed for pain. Continue taking her other medications as prescribed. Take doxycycline until it's gone. Please wear sunscreen appear to be outside while taking doxycycline. Please schedule a follow up visit with your personal physician for further evaluation and treatment within 3-5days If you developed worsening redness, swelling, pain, fevers, or red streaking up the arm, any other concerns please go to the ER immediately. Patient Language: Arabic Prescriptions: New doxycycline monohydrate 100 mg capsule 100 mg PO BID 7 Days Qty: 14 0RF No Action atorvastatin 80 mg tablet spironolactone 100 mg tablet cephalexin 500 mg capsule tacrolimus 0.1 % ointment TOPICAL ketoconazole 2 % cream TOPICAL amoxicillin 875 mg tablet 875 mg PO Q12H Qty: 20 0RF Follow-up/Referrals: Liza,Amy Martinez APN [Primary Care Provider] - Time of Disposition: 13:49
[2024-12-21] MEDS: TETANUS,DIPHTHERIA,AC PERTUSSIS ADULT (0.5 ML) BOOSTRIX IM (13:55)
== END 2024-12-21 14:12 | disposition home or self-care (01) ==
PROVIDERS: PCP Nurse Practitioner Family
DX: L03.114 Cellulitis of left upper limb (principal); Z23 Encounter for immunization; F17.210 Nicotine dependence, cigarettes, uncomplicated; K50.90 Crohn's disease, unspecified, without complications; M06.9 Rheumatoid arthritis, unspecified; Z90.710 Acquired absence of both cervix and uterus
CPT/HCPCS: 90471; 90715; 99213; G0463

== ENCOUNTER 2025-06-19 16:28 | Emergency (ER) | payer OTHER, SELFPAY ==
--- OUTSIDE RECORDS SUMMARY | 2025-06-19 16:31 | XMS_ITS | Data Portability ---
Author Organization [place] - [facility] [employer], Main Office Address [address] [place] [address] Assessment Encounter Date Assessment Date Assessment LastModified by Organization Details LastModified Time 09/24/2024 09/24/2024 right abdomen wi th pulling sensation. Now improved. Ultrasound shows gallstones but no signs cholecystitis. Suspect musculoskeletal issue, also incidental finding. Patient was reassured. Follow up p.r.n. [email or web address] Not available 09/24/2024 11:05:03 Plan of Treatment Reminders Order Date Submit Date Provider Last Modified By Organization Details Last Modified Time Details Appointments None recorded. Lab None recorded. Referral None recorded. Procedures colonoscopy screening (PROC) 2024 025 [facility] (Pre-Screen), [address] [place] [address], [id number], 15:07:43 Surgeries None recorded. Imaging None recorded. Medication Orders Golytely 236 gram-22.74 gram-6.74 gram-5.86 gram oral solution 2024 025 [facility], [facility] [place], [facility] [address], [place], [address], 15:16:57 Patient TargetsNo targets recorded. Patient Instructions Encounter Date Encounter Id Patient Instructions Last Modified By Organization Details Last Modified Time 09/30/2024 [id number] GOLYTELY [email or web address] Not available 06/2025 15:16:17 PT NEEDS A SCREENING COLON . R/O POLYP . RECOMMEND A COLONOSOPY RISKS BENEFITS AND COMPLICATIONS WERE EXPLAINED TO PT . ( BLEEDING , PERFORATION , INFECTION , ) PT VERBALIZES UNDERSTANDING AND IS WILLING TO PROCEDE . Not available 09/30/2024 15:16:31 Reason for Referral [...] Address Organization Details Recorded Time Abdominal pain 24239680 Active 2024 Juan kuhn MD [address], [address], [employer] [facility] [employer] 12:58:12 Cholelithiasis without obstruction 57842886 Active 2024 Juan kuhn MD [address] [address], [place], [address], [employer] 12:58:47 Problem Notes None recorded. Procedures Surgical History Date Name Laterality Status Provider Name and Address Organization Details Recorded Time Hysterectomy completed Giuliana mckinney [facility] [employer] [facility] [employer] [facility] 09/15/2024 12:23:04 Eye Surgery completed Giuliana Mcmillan [facility] [employer] [facility] [employer] 09/15/2024 12:23:17 Imaging Results None recorded. Procedure [...] temperature Respiratory rate Heart rate Oxygen saturation Systolic And Diastolic Provider Name and Address Organization Details Last Updated DateTime 5 162.56 cm 30.2 kg/m2 76988.2 6 g 98 [degF] 14 /min 68 /min 98 % 130/82 mm[Hg] Alison Zapata [facility] [employer] [facility] 5 10:34:00 Date Recorded Body height Body mass index (BMI) Body weight Heart rate Oxygen saturation Systolic And Diastolic Provider Name and Address Organization Details Last Updated DateTime 5 162.56 cm 30.2 kg/m2 22899.2 6 g 70 /min 99 % 128/80 mm[Hg] JAX Doe [facility] [employer] [facility] 14:05:19 Social History Question Answer Notes LastModified by [email or web address] Details LastModified Time Tobacco Smoking Status Current Every Day Smoker [facility]AX [facility] [employer] [facility] 09/15/2024 12:22:48 Which Illicit Or Recreational Drugs Have You Used? Marijuana Information not available 09/15/2024 Sex: Unknown Functional Status Question Answer Note LastModified by [email or web address] Details LastModified Time Do you use any [...] 09/15 12:21:50 Mother Malignant neoplasm of lung [email or web address] Not available 2024 12:22:01 Medical History Condition Response CANCER: SPECIFY Y ARTHRITIS Y ALLERGIES/HAYFEVER Y Abdominal Pain Y GI PROBLEMS Y HIGH CHOLESTEROL / HYPERLIPIDEMIA Y Gynecological HistoryNo gynecological history recorded. Obstetrics History GPAL:G 0 P 0 0 0 0 Past Encounters Encounter ID Performer Location Encounter Start Date Encounter Closed Date Diagnosis/Indication Diagnosis SNOMED-CT Code Diagnosis ICD10 Code Diagnosis IMO Codes Diagnosis Note [id number] Juan rubi MD [facility] General Surgery [address] [address] 09/24/2024 10:16:19 09/24/2024 11:24:28 Abdominal pain 88061149 R10.9 Cholelithi asis without obstruction [id number] K80.20 [id number] Ivon Mendez MD [facility] General Surgery [address] [address] 09/30/2024 14:02:34 09/30/2024 14:37:57 Screening for malignant neoplasm of colon 514555737 Z12.11 Health Concerns Section Related Observation LastModified by Organization Detai ls LastModified Time None Recorded Concern Status LastModified by Organization Details LastModified Time None Recorded Advance Directives Directive None Recorded Payers Insurance Date Sequence Insurance Name Policy Number Policy Shaw Covered Member ID Shaw Member ID Guarantor Name 04/13/2025 1 [facility] Luiza Canales [id number] Luiza Canales Notes Date Note Type Note Provider Name and Address Organization Details Recorded Time 09/24/2024 text/html Patient complains of a pulling sensation below her right ribcage when she was bending over. Denies nausea, vomiting fevers chills change in bowel habits although she states she had bowel troubles since she was 13 years old. Today she denies abdominal pain. Also complains of infection in her face that she has had for several weeks Juan Morales MD [address] [facility], [address] [address], [place], [address], [employer] 09/24/2024 12:58:52 09/30/2024 text/html ROS as noted in the HPI PT WAS SEEN IN THE OFFICE TODAY FOR COLON SCREENING . PT DENIES ABD PAIN /N/V/D/BLEEDING /WT LOSS. LAST COLON WAS X 10 YRS . SHE REPORTS SOME CONSTIPATION SX. Ivon Mendez MD [address] [facility], [facility], [place], [address], [employer] 09/30/2024 15:16:59 OBGyn Episode No OBEpisode recorded.
--- OUTSIDE RECORDS SUMMARY | 2025-06-19 16:31 | XMS_ITS | Continuity of Care Document ---
Author Organization [place] - [facility], [facility] Address [address] [place] [address] Care Team Providers Care Pumper Gager Name Role Phone AMY SIN Primary Care Provider MAGGY MICHEL Singing Messenger TATYANA JUÁREZ Maintenance Construction Helper Assessment No assessment recorded. Plan of Treatment Reminders Order Date Submit Date Provider Last Modified By Organization Details Last Modified Time Details Appointments ANY 15 2025 09:30A M Amy Sin DIRECTOR OF THERAPY SERVICES, REMOTE MORTGAGE UNDERWRITER-C Not available Not available Not available ANY 2025 09:45A M Tatyana Juárez MD Not available Not available Not available ANY 10 2025 10:10A M Gagandeep Restrepo MD Not available Not available Not available Lab BMP, serum or plasma 2024 025 [facility], [address] [place] [address], [id number], 04/13/2025 08:31:00 pro BNP (pro B-type natriur etic peptide ), serum or plasma 2024 025 [facility], [address] [place] [address], [id number], 04/13/2025 08:30:59 Referral None recorde d. Procedures None recorde d. Surgeries None recorde d. Imaging None recorde d. Medication Orders spirono lactone 25 mg tablet 2024 025 [facility], [address], [place], [address], 04/13/2025 15:34:44 Patient TargetsNo targets recorded. Patient Instructions Encounter Date Encounter Id Patient Instructions Last Modified By Organization Details Last Modified Time 03/25/2025 [id number] A healthy lifestyle: care instructions [email or web address] Not available 03/25/2025 11:28:21 Reason for Referral None Reported. Results Created Date Observation Date Name Description Value Unit Range Abnormal Flag Note LastModifiedBy Organization Detail LastModifiedTime 03/03/2003/04/2025 NT-CA OBNP nt-probnp 152 pg/mL 0-287 The follo wing cut-p oints have been sugge sted for the use of proBN P for the diagn ostic evalu ation of heart failu re (HF) in patie nts with acute dyspn ea: Modal ity Age Optim al Cut (year s) Point ----- ----- ----- ----- ----- ----- ----- ----- ----- ----- ---- Diagn osis (rule in HF) <50 450 pg/mL 50 - 75 900 pg/mL >75 1800 pg/mL Exclu lucía (rule out HF) Age indep enden t 300 pg/mL Not Available [facility] ([facility]) [address] [place], [address], 03/04/2025 04:36:41 03/03/2003/04/2025 ESR-W ES+CR P sedimentatio n rate-westerg monse 4 mm/HR 0-40 Not Available [facility] ([facility]) [address] [place], [address], 03/04/2025 04:36:42 03/03/2003/04/2025 ESR-W ES+CR P C-reactive protein, quant <1 mg/L 0-10 Not Available [facility] ([facility]) [address] [place], [address], 03/04/2025 04:36:42 04/12/2004/13/2025 NT-CA OBNP nt-probnp 94 pg/mL 0-287 The follo wing cut-p oints have been sugge sted for the use of proBN P for the diagn ostic evalu ation of heart failu re (HF) in patie nts with acute dyspn ea: Modal ity Age Optim al Cut (year s) Point ----- ----- ----- ----- ----- ----- ----- ----- ----- ----- ---- Diagn osis (rule in HF) <50 450 pg/mL 50 - 75 900 pg/mL >75 1800 pg/mL Exclu lucía (rule out HF) Age indep enden t 300 pg/mL Not Available [facility] ([facility]) [address] [place], [address], 04/13/2025 08:30:59 04/12/2004/13/2025 BASIC METAB OLIC PANEL (8) glucose 88 mg/dL 70-99 Not Available [facility] ([facility]) [address] [place], [address], 04/13/2025 08:31:00 04/12/2004/13/2025 BASIC METAB OLIC PANEL (8) BUN 15 mg/dL 8-27 Not Available [facility] ([facility]) [address] [place], [address], 04/13/2025 08:31:00 04/12/2004/13/2025 BASIC METAB OLIC PANEL (8) creatinine 0.92 mg/dL 0.57-1 .00 Not Available [facility] ([facility]) [address] [place], [address], 04/13/2025 08:31:00 04/12/2004/13/2025 BASIC METAB OLIC PANEL (8) eGFR 70 mL/mi n/1.7 3 >59 Not Available [facility] ([facility]) [address] [place], [address], 04/13/2025 08:31:00 04/12/2004/13/2025 BASIC METAB OLIC PANEL (8) BUN/creatini ne ratio 16 12-28 Not Available [facility] ([facility]) [address] [place], [address], 04/13/2025 08:31:00 04/12/2004/13/2025 BASIC METAB OLIC PANEL (8) sodium 142 mmol/ L 134-14 4 Not Available [facility] ([facility]) [address] [place], [address], 04/13/2025 08:31:00 04/12/2004/13/2025 BASIC METAB OLIC PANEL (8) potassium 5.4 mmol/ L 3.5-5. 2 above high normal Not Available [facility] ([facility]) [address] [place], [address], 04/13/2025 08:31:00 04/12/2004/13/2025 BASIC METAB OLIC PANEL (8) chloride 105 mmol/ L 96-106 Not Available [facility] ([facility]) [address] [place], [address], 04/13/2025 08:31:00 04/12/2004/13/2025 BASIC METAB OLIC PANEL (8) carbon dioxide, total 25 mmol/ L 20-29 Not Available [facility] ([facility]) [address] [place], [address], 04/13/2025 08:31:00 04/12/2004/13/2025 BASIC METAB OLIC PANEL (8) calcium 9.8 mg/dL 8.7-10 .3 Not Available [facility] ([facility]) [address] [place], [address], 04/13/2025 08:31:00 03/02/20 25 03/01/2025 US, echoc ardio gram, trans thora cic, compl ete, w/ color flow No observ ation record ed. [facility] [address], [place], [address], 03/02/2025 14:16:42 03/02/20 25 03/01/2025 US, echoc ardio gram, trans thora cic, compl ete, w/ color flow No observ ation record ed. [facility] [address] [facility] [address], [place], [address], 03/04/2025 10:24:10 03/03/20 25 03/01/2025 exerc ise stres s test No observ ation record ed. [facility] [address] [place] [address] [address], [place], [address], 03/03/2025 13:55:14 03/15/20 25 03/10/2025 MAMMO , scree jose j, digit al, bilat eral No observ ation record ed. [facility] [address] [place], [address], 03/19/2025 13:30:08 06/10/20 25 06/01/2025 pulse oxime try (PROC ) No observ ation record ed. ajamous Not Available 2024 10:02:41 Result Notes None recorded. Problems Name Problem SNOMED Code Status Onset Date Resolution Date Notes Provider Name and Address Organization Details Recorded Time Excessive growth of facial hair 533764761 Active 2024 Amy Sin APN, FNP-C Attn: Quynh coreas,[address], [place], [address], [place] [facility] 14:40:01 Smoker 96865832 Active 2024 Amy Sin APN, FNP-C Attn: Quynh joss,[address] [facility], [place], [address], [facility] 5 14:41:02 Overweight 816745155 Active 2024 Amy Sin APN, REMOTE MORTGAGE UNDERWRITER-C Attn: Quynh joss,[address] [facility], [place], [address], [facility] 5 14:41:04 Right upper quadrant pain 490452912 Active 2024 Amy Sin APN, REMOTE MORTGAGE UNDERWRITER-C Attn: Quynh joss,[address] [facility], [place], [address], [facility] 5 13:17:22 Hyperlipidemia 91465616 Active 2024 Amyrafael Sin APN, REMOTE MORTGAGE UNDERWRITER-C Attn: Quynh coreas,[address] [facility], [place], [address], [facility] 5 10:43:50 Mixed anxiety and depressive disorder 801893775 Active 2024 Amy Sin APN, REMOTE MORTGAGE UNDERWRITER-C Attn: Quynh coreas,[address] [facility], [place], [address], [facility] 5 10:45:04 Acute on chronic diastolic heart failure 351418528 Active 2024 Tatyana Juárez MD Attn: Quynh coreas,[address] [facility], [place], [address], [facility] 5 11:26:24 Problem Notes None recorded. Procedures Surgical History Date Name Laterality Status Provider Name and Address Organization Details Recorded Time 07/22/18 96 Total hysterectomy completed JAX Renee [facility] 08/11/2024 14:15:23 Imaging Results None recorded. Procedure Notes None recorded. Medical Equipment None Reported. Allergies No known drug allergies Medications Name Sig Start Date Stop Date Status Note LastModified by Organization Details LastModified Time bupropion HCl SR 150 mg tablet,12 hr sustained- release Take 1 tablet every day by oral route for 30 days. 02/08 completed Not Available Not Available Not Available atorvastat in 80 mg tablet TAKE 1 TABLET EVERY DAY BY ORAL ROUTE. 2024 active Not Available Not Available Not Avai lable prednisone 20 mg tablet Take 1 tablet twice a day by oral route. 03/09 completed Not Available Not Available Not Available spironolac tone 100 mg tablet 03/09 completed taking 150mg bid Not Available Not Available Not Available aspirin 81 mg tablet,del ayed release TAKE 1 TABLET EVERY DAY BY ORAL ROUTE. 2024 active Not Available Not Available Not Avai lable spironolac tone 25 mg tablet Take 1 tablet every day by oral route. 04/13 completed Not Available Not Available Not Available cephalexin 500 mg capsule Take 1 capsule every 6 hours by oral route for 30 days. 02/08 completed Not Available Not Available Not Available tacrolimus 0.1 % topical ointment APPLY A THIN LAYER TO THE AFFECTED AREA(S) BY TOPICAL ROUTE 2 TIMES PER DAY ; RUB IN GENTLY AND COMPLETE LY active Not Available Not Available No t Available cephalexin 500 mg tablet Take 1 tablet twice a day by oral route. 03/25 completed Not Available Not Available Not Available mupirocin 2 % topical ointment APPLY A SMALL AMOUNT TO THE AFFECTED AREA BY TOPICAL ROUTE 3 TIMES PER DAY active Not Available Not Available No t Available furosemide 20 mg tablet Take 1 tablet every day by oral route. 2024 active Not Available Not Available Not Avai lable albuterol sulfate HFA 90 mcg/actuat ion aerosol inhaler Inhale 2 puffs 4 times a day by inhalati on route for 30 days. 2024 active Not Available Not Available Not Avai lable ketoconazo le 2 % topical cream APPLY TO THE AFFECTED AREA(S) BY TOPICAL ROUTE ONCE DAILY active Not Available Not Available No t Available doxycyclin e hyclate 100 mg tablet Take 1 tablet twice a day by oral route. 03/09 completed Not Available Not Available Not Available bupropion HCl SR 200 mg tablet,12 hr sustained- release Take 1 tablet twice a day by oral route. active Not Available Not Available No t Available Vitamin D 400 IU daily active Not Available Not Available No t Available Dupixent 300 mg/2 mL subcutaneo us pen injector Inject 2 mL by subcutan eous route. 05/14 completed inject once every 2 weeks Not Available Not Available Not Available Dupixent Pen 02/08 completed Not Available Not Available Not Available Vitals Date Recorded Body height Body mass index (BMI) Body weight Respiratory rate Heart rate Oxygen saturation Systolic And Diastolic Provider Name and Address Organization Details Last Updated DateTime 5 163.83 cm 26.8 kg/m2 60065.4 7 g 18 /min 76 /min 98 % 132/84 mm[Hg] Dalia Markham LPN [facility] 11:06:15 Social History Question Answer Notes LastModified by Organizat ion Details LastModified Time Tobacco Smoking Status Former Smoker quit 02/10/25 BARBARA Velasco, [place] - [facility] 03/09/2025 15:06:30 Are You Blind Or Do You Have Difficulty Seeing? No Information not available 08/11/2024 What Is Your Level Of Caffeine Consumption? Moderate Coffee Information not available 01/01/2025 In The 14 Days Before Symptom Onset, [...] Type Of Diet Are You Following? REGULAR Healthy Lifestyle Information not available 01/01/2025 Are There Any Guns Present In Your Home? Yes Information not available 08/11/2024 What Was The Date Of Your Most Recent Tobacco Screening? 05/24/2025 [email or web address] Information not available 05/24/2025 How Many Children Do You Have? 2 [...] 08/11/2024 How Much Tobacco Do You Smoke? No Information not available 03/09/2025 Do You Use Sunscreen Routinely? Yes Information not available 08/11/2024 Has Tobacco Cessation Counseling Been Provided? Yes Information not available 05/14/2025 On What Date Was Tobacco Cessation Counseling Provided? 05/14/2025 Information not available 05/14/2025 How Many Years Have You Smoked Tobacco? 60 Information not available 02/08/2025 Sex: Female Functional Status Question Answer Note LastModified by Organizat ion Details LastModified Time Do you use any illicit or recreational drugs? Yes occ marijuanna occasional Information not available 01/01/2025 Do you or have you ever used any other forms of tobacco or nicotine? No Information not available 08/11/2024 What is your level of alcohol consumption? None Information not available 08/11/2024 Are you currently employed? No retired Information not available 08/11/2024 Are you able to care for yourself independently? Yes Information not available 08/11/2024 What is your exercise level? None Information not available 08/11/2024 Mental Status Question Answer Note LastModified by Organization D etails LastModified Time Do you feel stressed (tense, restless, nervous, or anxious, or unable to sleep at night)? [id number] Information not available 02/08/2025 Family History Relationship Description Onset Age of this Age Resolved Age Notes LastModified by Organization Details LastModified Time Paternal Grandmother Diabetes mellitus [email or web address] Not available 07/23 14:16:05 Father Myocardial infarction 44 [email or web address] Not available 14:16:21 Mother Malignant neoplasm of lung jschulterma Not available 07/23 14:16:54 Brother Hypercholest erolemia jschulterma Not available 07/23 11:00:14 Medical History Condition Response Coronary Artery Disease N High Blood Pressure N Atrial Fibrillation N Kidney or Bladder Problems N Thyroid Problems N GI Problems Y Depression N COPD N Blood Clots N Have you had a mammogram in the last yea r? N Skin Problems N Eating Disorder N Anemia N Heart Attack ([place]) N Anxiety Disorder N Diabetes N Muscle, Joint, or Bone Problems N Arthritis Y Seizures/Epilepsy N Have you had a colonoscopy in the last 1 0 years? N Acid Reflux (GERD) N Cancer Y Stroke N Asthma N Allergies Y Substance Abuse N High Cholesterol N Hepatitis N Liver Disease N Schizophrenia N Headaches N Osteoporosis N Heart Failure N Gynecological History Statement/Question Response Menses Monthly Y Age at Menarche 14 Current Control Method Hysterectom y Date of Last Mammogram Age at First Child 22 Obstetrics History GPAL:G 2 P 2 0 0 1 Type Value Full Term 2 Living 1 Total 2 Immunizations Vaccine Type Date Status Note Provider Nam e and Address Organization Details Recorded Time zoster recombinant 9 completed Amy Sin, DIRECTOR OF THERAPY SERVICES, REMOTE MORTGAGE UNDERWRITER-C Attn: [address] [place], [place], [address] [place] [address], [place] [facility] 08/11/2024 14:38:28 COVID-19, mRNA, LNP-S, PF, 30 mcg/0.3 mL dose 1 completed Amy Sin, DIRECTOR OF THERAPY SERVICES, REMOTE MORTGAGE UNDERWRITER-C Attn: [address] [place], [address], [place] [facility] 08/11/2024 14:38:28 COVID-19, mRNA, LNP-S, PF, 30 mcg/0.3 mL dose 1 completed Amy Sin, DIRECTOR OF THERAPY SERVICES, REMOTE MORTGAGE UNDERWRITER-C Attn: [address] [place], [address], [place] - [facility] 08/11/2024 14:38:28 pneumococcal polysaccharide PPV23 9 completed Amy Sin, DIRECTOR OF THERAPY SERVICES, REMOTE MORTGAGE UNDERWRITER-C Attn: [address] [facility], [place], [place], [address] [place] [address], [facility] 08/11/2024 14:38:28 Tdap 9 completed Amy Sin, DIRECTOR OF THERAPY SERVICES, REMOTE MORTGAGE UNDERWRITER-C Attn: [address] [facility], [place], [place], [address] [place] [address], [facility] 08/11/2024 14:38:28 Influenza, split virus, trivalent, PF 5 completed Amy Sin, DIRECTOR OF THERAPY SERVICES, REMOTE MORTGAGE UNDERWRITER-C Attn: [address] [facility], [place], [place], [address] [place] [address], [facility] 08/11/2024 14:38:28 Hep A, ped/adol, 2 dose 0 completed Amy Sin, DIRECTOR OF THERAPY SERVICES, REMOTE MORTGAGE UNDERWRITER-C Attn: [address] [facility], [place], [place], [address] [place] [address], [facility] 08/11/2024 14:38:28 Influenza, split virus, quadrivalent, PF 9 completed Amy Sin, DIRECTOR OF THERAPY SERVICES, REMOTE MORTGAGE UNDERWRITER-C Attn: [address] [facility], [place], [address] [place] [address], [facility] 08/11/2024 14:38:28 Tdap 5 completed Not Available [facility] 05/14/2025 10:59:14 Influenza, split virus, trivalent, preservative 5 completed Amy Sin, DIRECTOR OF THERAPY SERVICES, REMOTE MORTGAGE UNDERWRITER-C Attn: [address]ing,[address] [facility], [place], [place], [address] [place] [address], [facility] 08/12/2024 13:16:42 Pneumococcal conjugate PCV20, polysaccharide VDK115 conjugate, adjuvant, PF 5 completed Amy Sin, DIRECTOR OF THERAPY SERVICES, REMOTE MORTGAGE UNDERWRITER-C Attn: [address] [facility], [place], [place], [address] [place] [address], [facility] 08/12/2024 13:16:42 Past Encounters Encounter ID Performer Location Encounter Start Date Encounter Closed Date Diagnosis/Indication Diagnosis SNOMED-CT Code Diagnosis ICD10 Code Diagnosis IMO Codes Diagnosis Note [id number] MD Alf Tomas (Adult Med) [address] [place] [address] 03/09/2025 14:46:14 03/11/2025 10:25:30 Costal chondritis 55380541 M94.0 49841 rib tenderness intermitte ntly-advis ed to cone NSAIDs prn Overweight 516406452 E66 .3 advised low fat, low cholestero l diet, regular exercise and weight reduction. [id number] Tatyana Juárez MD [facility] [place] [address] [place] [address] 03/25/2025 10:52:17 03/26/2025 07:20:57 Coronary arteriosclerosis 84470181 I25.10 [id number] Coronary calcificat ion on LDCT chest with low risk findings on stress test. No angina. Medical management after shared decision-m aking. Continue aspirin 81 mg daily. Mixed hyperlipidemia 267 278122 E78.2 14748 Labs from 02/09/2025 with LDL 77, HDL 52. Ongoing dietary modificati ons encouraged . Continue atorvastat in 40 mg daily. Overweight 094357638 E66 .3 50223 Diet/exerc ise modificati ons reinforced . Acute on c hronic diastolic heart failure 084892581 I50.33 [id number] Requesting to reinitiate spironolac tone. We will initiate at lower dose of 25 mg daily given previous episodes of hyperkalem ia. Low-potass ium diet reinforced . Check follow-up BMP and proBNP given diastolic dysfunctio n on echocardio gram with findings of lower extremity edema. Health Concerns Section Related Observation LastModified by Organization Detai ls LastModified Time None Recorded Concern Status LastModified by Organization Details LastModified Time None Recorded Payers Encounter Date Sequence Insurance Name Policy Number Policy Shaw Covered Member ID Shaw Member ID Guarantor Name 03/25/2025 1 [facility] [place] Luiza Canales [id number] Luiza A Blue Canales 03/25/2025 2 *SELF PAY* Ci evgeny Everett Blue Ally Notes Date Note Type Note Provider Name and Address Organization Details Recorded Time 03/25/2025 text/html ROS as noted in the HPI patient presents for follow-up of chest pain and dyspnea. No dyspnea. No chest pain. Has given up smoking. No palpitations, presyncope or syncope. Blood pressure within normal range. Reports that she is noticing increasing lower extremity edema after discontinuing spironolactone which was previously 300 my mg daily dose by her telephone diaphragm assembler Cardiac diagnostics:Twelve lead EKG 01/05/2025: Sinus rhythm, no ST-T changes, no Q-waves LDCT, 01/14/2025: Noncardiac findings per Radiology report. Noted findings of coronary and aortic calcification. Transthoracic echocardiogram 03/01/2025: LVEF 55-60, DD 2, mild MR, no pulmonary hypertension Treadmill stress test 03/01/2025: Negative for inducible ischemia at 6 minutes, 30 seconds of Andrea protocol, 7.9 Mets, 88% age predicted maximum heart rate. Peak blood pressure 212/77 mmHg consistent with hypertensive response to exercise Tatyana Juárez MD Attn: [address] [facility], [place], [address], [facility] 03/25/2025 14:02:19 OBGyn Episode No OBEpisode recorded.
--- OUTSIDE RECORDS SUMMARY | 2025-06-19 16:31 | XMS_ITS | Data Portability ---
Author Organization [facility] Jacinta [facility] Address [address] [facility] [place] [address] Care Team Providers Care Leather Parts Matcher Name Role Phone AMY SIN Primary Care Provider [phone] MAGGY MICHEL Ammunition Specialist TATYANA JUÁREZ Sales And Distribution Clerk Assessment No assessment recorded. Plan of Treatment Reminders Order Date Submit Date Provider Last Modified By Organization Details Last Modified Time Details Appointments ANY 2025 09:30A M NADEGE ReddyN, CHEMICAL PROCESSING SUPERVISOR-C Not available Not available Not available ANY 2025 09:45A M Tatyana Juárez MD Not available Not available Not available ANY 2025 10:10A M Gagandeep Restrepo MD Not available Not available Not available Lab BMP, serum or plasma 2024 025 [facility], [address] [place] [address], [address], 06/15/2025 07:44:06 BMP, serum or plasma 2024 025 [facility], [address] [facility] [address], [place], [address], 04/13/2025 08:31:00 pro BNP (pro B-type natriur etic peptide ), serum or plasma 2024 025 [facility], [address] [facility] [address], [address], 04/13/2025 08:30:59 inflamm ation panel, serum or plasma 2024 [facility], [address] [facility] [address], [place], [address], 03/04/2025 04:36:42 pro BNP (pro B-type natriur etic peptide ), serum or plasma 2024 [facility], [address] [facility] [address], [place], [address], 03/04/2025 04:36:42 Referral sleep medicin e referra l - Plz eval and Rx for SCOTT 2024 stanton Restrepo MD, [address] [place], [address], 05/20/2025 11:04:45 Procedures pulmona ry stress test, simple (PROC) 2024 [id number] [facility] [address], [place], [address], 05/24/2025 12:10:46 Surgeries None recorde d. Imaging oximetr y monitor ing overnig ht - Please do testing on room air. 2024 [facility], [address] [place] [address], [place], [address], 06/16/2025 04:23:15 PFT, complet e - W/ Post Broncho dilator Spirome try 2024 025 [facility] [address], [place], [address], 06/07/2025 04:30:50 LDCT, chest, for lung cancer screeni ng [id number] [place] [address] Patient Access Centralized Scheduling, Centralized Scheduling, [address] [facility] , [place], [address], 05/26/2025 15:58:55 exercis e stress test 2024 025 [facility], [address], [place], [address], 03/03/2025 13:55:13 US, echocar diogram , transth oracic, complet e, w/ color flow 2024 025 [facility], [address], [place], [address], 03/02/2025 14:16:42 Medication Orders albuter ol sulfate HFA 90 mcg/act uation aerosol inhaler 2024 025 [facility], [facility] [address], [place], [address], 05/24/2025 11:37:30 furosem gareth 20 mg tablet 2024 025 [place] [address], [place], [address], 05/14/2025 11:13:00 spirono lactone 25 mg tablet 2024 025 [facility], [facility] [address], [place], [address], 04/13/2025 15:34:44 Enteric Coated Aspirin 81 mg tablet, delayed release 2024 025 [place] [address], [place], [address], 02/12/2025 12:15:05 Patient TargetsNo targets recorded. Patient Instructions Encounter Date Encounter Id Patient Instructions Last Modified By Organization Details Last Modified Time 02/12/2025 [id number] Quitting Tobacco : Care Instructions [email or web address] Not available 02/12/2025 12:15:03 - Please ask you r primary care provider if you can stop the Spironolactone since your potassium levels are going up - Echo and stress test - Follow up in about 6 weeks with blood work prior [email or web address] Not available 02/12/2025 12:15:34 03/09/2025 [id number] costochondritis: care instructions Not available 03/09/2025 15:30:07 Cont on current medications. Not available 03/10/2025 23:46:11 keep f/u as planned Not available 03/10/2025 23:46:18 03/25/2025 [id number] A healthy lifestyle: care instructions [email or web address] Not available 03/25/2025 11:28:21 05/14/2025 [id number] Quitting Tobacco : Care Instructions [email or web address] Not available 05/14/2025 11:12:58 05/24/2025 [id number] crohn's disease: care instructions [email or web address] Not available 05/24/2025 11:37:28 Rheumatoid Arthritis (RA): Care Instructions [email or web address] Not available 05/24/2025 11:37:28 Reason for Referral Sleep Medicine Referral for Overweight Plz eval and Rx for SCOTT Referring Physician: Tatyana Juárez, Cardiology, Encounter Date: 05/14/2025 Results Created Date Observation Date Name Description Value Unit Range Abnormal Flag Note LastModifiedBy Organization Detail LastModifiedTime 02/10/2002/10/2025 LIPID PANEL cholesterol, total 154 mg/dL 100-19 9 Not Available [facility] ([facility]) [address] [facility], [place], [address], 02/10/2025 03:08:06 02/10/2002/10/2025 LIPID PANEL triglyceride s 147 mg/dL 0-149 Not Available [facility] ([facility]) [address] [place], [address], 02/10/2025 03:08:06 02/10/20 25 02/10/2025 LIPID PANEL HDL cholesterol 52 mg/dL >39 Not Available [facility]) [address] [facility], [place], [address], 02/10/2025 03:08:06 02/10/20 25 02/10/2025 LIPID PANEL VLDL cholesterol evans 25 mg/dL 5-40 Not Available [facility] ([facility]) [address] [place], [address], 02/10/2025 03:08:06 02/10/20 25 02/10/2025 LIPID PANEL LDL chol calc ([facility]) 77 mg/dL 0-99 Not Available [facility]) [address] [place], [address], 02/10/2025 03:08:06 02/10/20 25 02/10/2025 COMP. METAB OLIC PANEL (14) glucose 104 mg/dL 70-99 above high normal Not Available [facility] ([facility]) [address] [place], [address], 02/10/2025 03:08:08 02/10/20 25 02/10/2025 COMP. METAB OLIC PANEL (14) BUN 17 mg/dL 8-27 Not Available [facility] ([facility]) [address] [place], [address], 02/10/2025 03:08:08 02/10/20 25 02/10/2025 COMP. METAB OLIC PANEL (14) creatinine 1.07 mg/dL 0.57-1 .00 above high normal Not Available [facility] ([facility]) [address] [place], [address], 02/10/2025 03:08:08 02/10/20 25 02/10/2025 COMP. METAB OLIC PANEL (14) eGFR 58 mL/mi n/1.7 3 >59 below low normal Not Available [facility] ([facility]) [address] [place], [address], 02/10/2025 03:08:08 02/10/20 25 02/10/2025 COMP. METAB OLIC PANEL (14) BUN/creatini ne ratio 16 12-28 Not Available [facility] ([facility]) [address] [facility] [place], [address], 02/10/2025 03:08:08 02/10/20 25 02/10/2025 COMP. METAB OLIC PANEL (14) sodium 135 mmol/ L 134-14 4 Not Available [facility] ([facility]) [address] [place], [address], 02/10/2025 03:08:08 02/10/20 25 02/10/2025 COMP. METAB OLIC PANEL (14) potassium 5.7 mmol/ L 3.5-5. 2 above high normal Not Available [facility] ([facility]) [address], [place], [address], 02/10/2025 03:08:08 02/10/20 25 02/10/2025 COMP. METAB OLIC PANEL (14) chloride 99 mmol/ L 96-106 Not Available [facility] ([facility]) [address] [place], [address], 02/10/2025 03:08:08 02/10/20 25 02/10/2025 COMP. METAB OLIC PANEL (14) carbon dioxide, total 21 mmol/ L 20-29 Not Available [facility] ([facility]) [address] [place], [address], 02/10/2025 03:08:08 02/10/20 25 02/10/2025 COMP. METAB OLIC PANEL (14) calcium 10.6 mg/dL 8.7-10 .3 above high normal Not Available [facility] ([facility]) [address] [facility] [place], [address], 02/10/2025 03:08:08 02/10/20 25 02/10/2025 COMP. METAB OLIC PANEL (14) protein, total 7.8 g/dL 6.0-8. 5 Not Available [facility] ([facility]) [address], [place], [address], 02/10/2025 03:08:08 02/10/20 25 02/10/2025 COMP. METAB OLIC PANEL (14) albumin 4.9 g/dL 3.9-4. 9 Not Available [facility] ([facility]) [address], [place], [address], 02/10/2025 03:08:08 02/10/20 25 02/10/2025 COMP. METAB OLIC PANEL (14) globulin, total 2.9 g/dL 1.5-4. 5 Not Available [facility] ([facility]) [address], [place], [address], 02/10/2025 03:08:08 02/10/20 25 02/10/2025 COMP. METAB OLIC PANEL (14) bilirubin, total 0.6 mg/dL 0.0-1. 2 Not Available [facility] ([facility]) [address], [place], [address], 02/10/2025 03:08:08 02/10/20 25 02/10/2025 COMP. METAB OLIC PANEL (14) alkaline phosphatase 84 IU/L 44-121 Not Available [facility] ([facility]) [address], [place], [address], 02/10/2025 03:08:08 02/10/20 25 02/10/2025 COMP. METAB OLIC PANEL (14) AST (SGOT) 19 IU/L 0-40 Not Available [facility] ([facility] [address] [facility] [place], [address], 02/10/2025 03:08:08 02/10/20 25 02/10/2025 COMP. METAB OLIC PANEL (14) ALT (SGPT) 22 IU/L 0-32 Not Available [facility] ([facility]) [address] [facility] [place], [address], 02/10/2025 03:08:08 02/10/2002/10/2025 HEMOG LOBIN A1C hemoglobin A1C 5.9 % 4.8-5. 6 above high normal Predi abete s: 5.7 - 6.4 Diabe wagner: >6.4 Glyce mily contr ol for adult s with diabe wagner: <7.0 Not Available [facility] ([facility]) [address] [place], [address], 02/10/2025 03:08:09 03/03/2003/04/2025 NT-AR OBNP nt-probnp 152 pg/mL 0-287 The follo [...] enden t 300 pg/mL Not Available [facility] ([facility]) [address] [place], [address], 03/04/2025 04:36:41 03/03/2003/04/2025 ESR-W ES+CR P sedimentatio n rate-westerg monse 4 mm/HR 0-40 Not Available [facility] ([facility]) [address] [place], [address], 03/04/2025 04:36:42 03/03/20 25 03/04/2025 ESR-W ES+CR P C-reactive protein, quant <1 mg/L 0-10 Not Available [facility] ([facility]) [address] [place], [address], 03/04/2025 04:36:42 04/12/2004/13/2025 NT-AR OBNP nt-probnp 94 pg/mL 0-287 The follo [...] enden t 300 pg/mL Not Available [facility] ([facility]) [address] [place], [address], 04/13/2025 08:30:59 04/12/2004/13/2025 BASIC METAB OLIC PANEL (8) glucose 88 mg/dL 70-99 Not Available [facility] ([facility]) [address] [place], [address], 04/13/2025 08:31:00 04/12/2004/13/2025 BASIC METAB OLIC PANEL (8) BUN 15 mg/dL 8-27 Not Available [facility] ([facility]) [address] [place], [address], 04/13/2025 08:31:00 04/12/2004/13/2025 BASIC METAB OLIC PANEL (8) creatinine 0.92 mg/dL 0.57-1 .00 Not Available [facility] ([facility]) [address] [place], [address], 04/13/2025 08:31:00 04/12/2004/13/2025 BASIC METAB OLIC PANEL (8) eGFR 70 mL/mi n/1.7 3 >59 Not Available [facility] ([facility]) [address] [facility] [place], [address], 04/13/2025 08:31:00 04/12/2004/13/2025 BASIC METAB OLIC PANEL (8) BUN/creatini ne ratio 16 12-28 Not Available [facility] ([facility]) [address] [place], [address], 04/13/2025 08:31:00 04/12/2004/13/2025 BASIC METAB OLIC PANEL (8) sodium 142 mmol/ L 134-14 4 Not Available [facility] ([facility]) [address] [facility], [place], [address], 04/13/2025 08:31:00 04/12/2004/13/2025 BASIC METAB OLIC PANEL (8) potassium 5.4 mmol/ L 3.5-5. 2 above high normal Not Available [facility] ([facility]) [address] [place], [address], 04/13/2025 08:31:00 04/12/2004/13/2025 BASIC METAB OLIC PANEL (8) chloride 105 mmol/ L 96-106 Not Available [facility] ([facility]) [address] [place], [address], 04/13/2025 08:31:00 04/12/2004/13/2025 BASIC METAB OLIC PANEL (8) carbon dioxide, total 25 mmol/ L 20-29 Not Available [facility] ([facility]) [address] [place], [address], 04/13/2025 08:31:00 04/12/2004/13/2025 BASIC METAB OLIC PANEL (8) calcium 9.8 mg/dL 8.7-10 .3 Not Available [facility] ([facility]) [address] [facility], [place], [address], 04/13/2025 08:31:00 05/04/2005/04/2025 BASIC METAB OLIC PANEL (8) interpretati on: COMMEN T GFR estim ate at the follo wing level for >or=3 month s is class ified as follo ws: GFR WITH KIDNE Y DAMAG E WITHO UT KIDNE Y DAMAG E >or=9 0 Stage 1 Ximena l 60-89 Stage 2 Decr eased GFR 30-59 Stage 3 Stage 3 15-29 Stage 4 Stage 4 <15 (or dialy sis) Stage 5 Stage 5 Estim ated GFR will over estim ate true GFR if serum creat inine is risin g as in acute renal failu re and will under estim ate true GFR if serum creat inine is decli jose j as in resol ving acute renal failu re. Addit ional infor miguelito winters may be found at www. doqi. org. Not Available [facility] ([facility]) [address] [facility], [place], [address], 05/05/2025 03:36:24 05/04/2005/05/2025 BASIC METAB OLIC PANEL (8) glucose 87 mg/dL 70-99 Not Available [facility] ([facility]) [address] [place], [address], 05/05/2025 03:36:24 05/04/2005/05/2025 BASIC METAB OLIC PANEL (8) BUN 13 mg/dL 8-27 Not Available [facility] ([facility]) [address] [place], [address], 05/05/2025 03:36:24 05/04/2005/05/2025 BASIC METAB OLIC PANEL (8) creatinine 0.83 mg/dL 0.57-1 .00 Not Available [facility] ([facility]) [address] [place], [address], 05/05/2025 03:36:24 05/04/2005/05/2025 BASIC METAB OLIC PANEL (8) eGFR 79 mL/mi n/1.7 3 >59 Not Available [facility] ([facility]) [address] [place], [address], 05/05/2025 03:36:24 05/04/2005/05/2025 BASIC METAB OLIC PANEL (8) BUN/creatini ne ratio 16 12-28 Not Available [facility] ([facility]) [address] [place], [address], 05/05/2025 03:36:24 05/04/2005/05/2025 BASIC METAB OLIC PANEL (8) sodium 143 mmol/ L 134-14 4 Not Available [facility] ([facility]) [address] [place], [address], 05/05/2025 03:36:24 05/04/2005/05/2025 BASIC METAB OLIC PANEL (8) potassium 4.8 mmol/ L 3.5-5. 2 Not Available [facility] ([facility]) [address] [place], [address], 05/05/2025 03:36:24 05/04/20 25 05/05/2025 BASIC METAB OLIC PANEL (8) chloride 106 mmol/ L 96-106 Not Available [facility] ([facility]) [address] [place], [address], 05/05/2025 03:36:24 05/04/2005/05/2025 BASIC METAB OLIC PANEL (8) carbon dioxide, total 22 mmol/ L 20-29 Not Available [facility] ([facility]) [address] [place], [address], 05/05/2025 03:36:24 05/04/20 25 05/05/2025 BASIC METAB OLIC PANEL (8) calcium 9.8 mg/dL 8.7-10 .3 Not Available [facility] ([facility]) [address] [facility], [place], [address], 05/05/2025 03:36:24 06/14/2006/15/2025 BASIC METAB OLIC PANEL (8) glucose 89 mg/dL 70-99 Not Available [facility] ([facility]) [address] [place], [address], 06/15/2025 07:44:06 06/14/2006/15/2025 BASIC METAB OLIC PANEL (8) BUN 16 mg/dL 8-27 Not Available [facility] ([facility]) [address] [place], [address], 06/15/2025 07:44:06 06/14/2006/15/2025 BASIC METAB OLIC PANEL (8) creatinine 0.88 mg/dL 0.57-1 .00 Not Available [facility] ([facility]) [address] [place], [address], 06/15/2025 07:44:06 06/14/2006/15/2025 BASIC METAB OLIC PANEL (8) eGFR 74 mL/mi n/1.7 3 >59 Not Available [facility] ([facility]) [address] [place], [address], 06/15/2025 07:44:06 06/14/2006/15/2025 BASIC METAB OLIC PANEL (8) BUN/creatini ne ratio 18 12-28 Not Available [facility] ([facility]) [address] [place], [address], 06/15/2025 07:44:06 06/14/2006/15/2025 BASIC METAB OLIC PANEL (8) sodium 141 mmol/ L 134-14 4 Not Available [facility] ([facility]) [address] [place], [address], 06/15/2025 07:44:06 06/14/2006/15/2025 BASIC METAB OLIC PANEL (8) potassium 5.1 mmol/ L 3.5-5. 2 Not Available [facility] ([facility]) [address] [facility], [place], [address], 06/15/2025 07:44:06 06/14/2006/15/2025 BASIC METAB OLIC PANEL (8) chloride 104 mmol/ L 96-106 Not Available [facility] ([facility]) [address] [facility], [place], [address], 06/15/2025 07:44:06 06/14/2006/15/2025 BASIC METAB OLIC PANEL (8) carbon dioxide, total 25 mmol/ L 20-29 Not Available [facility] ([facility]) [address] [facility], [place], [address], 06/15/2025 07:44:06 06/14/2006/15/2025 BASIC METAB OLIC PANEL (8) calcium 9.7 mg/dL 8.7-10 .3 Not Available [facility] ([facility]) [address] [facility], [place], [address], 06/15/2025 07:44:06 02/03/20 25 01/14/2025 LDCT, chest , for lung cance r scree jose j No observ ation record ed. [facility] [address] [place], [address], 02/04/2025 21:05:41 03/02/20 25 03/01/2025 US, echoc ardio gram, trans thora cic, compl ete, w/ color flow No observ ation record ed. [facility] [address] [place] [address], [place], [address], 03/02/2025 14:16:42 03/02/20 25 03/01/2025 US, echoc ardio gram, trans thora cic, compl ete, w/ color flow No observ ation record ed. [facility] [address], [place], [address], 03/04/2025 10:24:10 03/03/20 25 03/01/2025 exerc ise stres s test No observ ation record ed. [facility] [address], [place], [address], 03/03/2025 13:55:14 03/15/2003/10/2025 MAMMO , scree jose j, digit al, bilat eral No observ ation record ed. [facility] [address] [place], [address], 03/19/2025 13:30:08 06/10/2006/01/2025 pulse oxime try (PROC ) No observ ation record ed. ajamous Not Available 2024 10:02:41 Result Notes None recorded. Problems Name Problem SNOMED Code Status Onset Date Resolution Date Notes Provider Name and Address Organization Details Recorded Time Excessive growth of facial hair 609970987 Active 2024 Amy Sin APN, FNP-C Attn: Quynh coreas,[address] [place], [address], [facility] 5 14:40:01 Smoker 41161347 Active 2024 Amy Sin APN, FNP-C Attn: Quynh coreas,[address] [place], [address], [facility] 5 14:41:02 Overweight 518784540 Active 2024 Amy Sin APN, FNP-C Attn: Quynh coreas,[address] [place], [address], [facility] 5 14:41:04 Right upper quadrant pain 678385728 Active 2024 Amy Sin APN, FNP-C Attn: Quynh coreas,[address], [place], [address], [facility] 5 13:17:22 Hyperlipidemia 75033403 Active 2024 Amy Sin APN, CHEMICAL PROCESSING SUPERVISOR-C Attn: Quynh coreas,[address], [place], [address], [facility] 5 10:43:50 Mixed anxiety and depressive disorder 746135717 Active 2024 mAy Sin APN, CHEMICAL PROCESSING SUPERVISOR-C Attn: Quynh coreas,[address], [place], [address], [facility] 5 10:45:04 Acute on chronic diastolic heart failure 906657405 Active 2024 Tatyana Juárez MD Attn: Quynh coreas,[address] [facility], [place], [address], [facility] 5 11:26:24 Problem Notes None recorded. Procedures Surgical History Date Name Laterality Status Provider Name and Address Organization Details Recorded Time 07/22/18 96 Total hysterectomy completed JAX Renee [facility] 08/11/2024 14:15:23 Imaging Results None recorded. Procedure [...] Details Last Updated DateTime 5 163.83 cm 24.3 kg/m2 09000.3 g 18 /min 85 /min 98 % 108/64 mm[Hg] Dalia Markham LPN [facility] 11:42:20 Date Recorded Body height Body mass index (BMI) Body weight Body temperature Oxygen saturation Heart rate Systolic And Diastolic Provider Name and Address Organization Details Last Updated DateTime 5 163.83 cm 26.6 kg/m2 49574.7 5 g 97.8 [degF] 96 % 83 /min 112/73 mm[Hg] Glenny Cordova MA [facility] 15:03:17 Date Recorded Body height Body mass index (BMI) Body weight Respiratory rate Heart rate Oxygen saturation Systolic And Diastolic Provider Name and Address Organization Details Last Updated DateTime 5 163.83 cm 26.8 kg/m2 06955.4 7 g 18 /min 76 /min 98 % 132/84 mm[Hg] Dalia Markham LPN [facility] 11:06:15 Date Recorded Body height Body mass index (BMI) Body weight Heart rate Oxygen saturation Systolic And Diastolic Provider Name and Address Organization Details Last Updated DateTime 5 163.83 cm 27.4 kg/m2 29862.9 6 g 72 /min 97 % 110/68 mm[Hg] Amanda Godinez MA [facility] 11:05:52 Date Recorded Body height Body mass index (BMI) Body weight Body temperature Respiratory rate Oxygen saturation Heart rate Pain severity - 0-10 verbal numeric rating [Score] - Reported Systolic And Diastolic Provider Name and Address Organization Details Last Updated DateTime 5 163.83 cm 27.7 kg/m2 81068.1 5 g 97.2 [degF] 18 /min 100 % 74 /min 0 122/74 mm[Hg] Candy Gao LPN [facility] 5 11:19:36 Social History Question Answer Notes LastModified by Organizat ion Details LastModified Time Tobacco Smoking Status Former Smoker quit 02/10/25 Glenny Cordova MA [facility], [facility] 03/09/2025 15:06:30 Are You Blind Or Do [...] any illicit or recreational drugs? Yes occ rebel occasional Information not available 01/01/2025 Do you [...] anxious, or unable to sleep at night)? [id number] Information not available 02/08/2025 Family History Relationship [...] High Blood Pressure N Atrial Fibrillation N Thyroid Problems N Kidney or Bladder Problems N GI Problems Y Depression N COPD N Blood Clots N Have you had a mammogram in the last yea r? N Skin Problems N Eating Disorder N Anemia N Heart Attack ([place]) N Anxiety Disorder N Diabetes N Muscle, Joint, or Bone Problems N Arthritis Y Seizures/Epilepsy N Have you had a colonoscopy in the last 1 0 years? N Acid Reflux (GERD) N Cancer Y Stroke N Asthma N Allergies Y Substance Abuse N High Cholesterol N Hepatitis N Liver Disease N Schizophrenia N Headaches N Heart Failure N Osteoporosis N Gynecological [...] Time zoster recombinant 9 completed Amy Sin, TIRE BEADER MAKER, CHEMICAL PROCESSING SUPERVISOR-C Attn: Accounting,[address] [facility], [place], [place], [address] [place] [address], [facility] 08/11/2024 14:38:28 COVID-19, mRNA, LNP-S, PF, 30 mcg/0.3 mL dose 1 completed Amy Sin TIRE BEADER MAKER, CHEMICAL PROCESSING SUPERVISOR-C Attn: Accounting,[address] [facility], [place], [address] [place] [address], [facility] 08/11/2024 14:38:28 COVID-19, mRNA, LNP-S, PF, 30 mcg/0.3 mL dose 1 completed Amy Sin TIRE BEADER MAKER, CHEMICAL PROCESSING SUPERVISOR-C Attn: Accounting,[address] [facility], [place], [address] [place] [address], [facility] 08/11/2024 14:38:28 pneumococcal polysaccharide PPV23 9 completed Amy Sin TIRE BEADER MAKER, CHEMICAL PROCESSING SUPERVISOR-C Attn: Accounting,[address] [place], [place], [address] [place] [address], [facility] 08/11/2024 14:38:28 Tdap 9 completed Amy Sin TIRE BEADER MAKER, CHEMICAL PROCESSING SUPERVISOR-C Attn: Accounting,[address] [facility], [place], [address] [place] [address], [facility] 08/11/2024 14:38:28 Influenza, split virus, trivalent, PF 5 completed Amy Sin TIRE BEADER MAKER, CHEMICAL PROCESSING SUPERVISOR-C Attn: Accounting,[address] [place], [address] [place] [address], [facility] 08/11/2024 14:38:28 Hep A, ped/adol, 2 dose 0 completed Amy Sin TIRE BEADER MAKER, CHEMICAL PROCESSING SUPERVISOR-C Attn: Accounting,[address] [place], [address], [facility] 08/11/2024 14:38:28 Influenza, split virus, quadrivalent, PF 9 completed Amy Sin, TIRE BEADER MAKER, CHEMICAL PROCESSING SUPERVISOR-C Attn: Accounting,[address], [place], [address], [facility] 08/11/2024 14:38:28 Tdap 5 completed Not Available [facility] 05/14/2025 10:59:14 Influenza, split virus, trivalent, preservative 5 completed Amy Sin, TIRE BEADER MAKER, CHEMICAL PROCESSING SUPERVISOR-C Attn: Accounting,[address] [facility], [place], [address] [place] [address], [facility] 08/12/2024 13:16:42 Pneumococcal conjugate PCV20, polysaccharide [id number] conjugate, adjuvant, PF 5 completed Amy Sin, TIRE BEADER MAKER, CHEMICAL PROCESSING SUPERVISOR-C Attn: Accounting,[address] [facility], [place], [address] [place] [address], 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 Excessive growth of facial hair 617718986 L68.2 on aldactone from derm Administra tion of influenza vaccine 48613323 Z23 Overweight 044318075 E66 .3 advised low fat, low cholestero l diet, regular exercise and weight reduction. Smoker 65308856 F17.200 Smoking cessation encouraged . Right uppe r quadrant pain 506608669 R10.11 exam wnl in office; states pain is random but more frequent if putting on socks;hx of crohns as well, intermitte nt pain, offered labs and US, pt would like to wait on US for nowpt also declines referral Fatigue 94984653 R53.83 will check labs Administra tion of pneumococcal vaccine 10487905 Z23 [id number] Ananda Wellington MD [facility] (Adult Med) [address] [place] [address] 01/01/2025 12:03:44 01/19/2025 08:54:20 Cigarette smoker 06986199 F17.210 156885 -Patient reports she started using tobacco at age 11. She was a >1PPD. She did intermitte ntly stop for her pregnancie s. She has been working on quitting.- LDCT ordered- e patient continues to use tobacco despite previous direction toquit. The patient is aware of risks of tobacco, which includes developing cancer, emphysema, and premature cardiovasc ular disease. Mixed anxi ety and depressive disorder 678652934 F41.8 750048 -Patient reports she has lost her son, daughter in law, her mother, her father in law.-She is currently raising her grandson-bin chen reports she worries when her leaves her house that he won't return, because of all of her family loss.-Alida ent reports she used to be on bupropion to help quit smoking, which did help. She also used to be on valium as prescribed by her old PCP.-Denie s active suicidal or homicidal thoughts. Denies history of suicidal or homicidal thoughts.- PHQ9 score: 2 (08/11/24)- Patient agreeable to psychiatry referral-Bin chen was educated on her prescribed medication s, rationale for medication s, dosing indication s, adverse reactions, black box warning, dosing indication s, SE (e.g., decreased libido, weight gain, gynecomast ia, and galactorrh ea) and the risks and benefits.- Patient instructed to go to ER or call 911 or 988 for crisis (e.g., suicidal behaviors, suicidal ideations, intent or plan emerge). Additional ly, patient has suicide hotline #[phone].-Start ed therapy: bupropion SR 150mg daily-f/u one month-Advi sed patient to call clinic with questions Abnormal hair finding 10 [id number] 7727482 L67.8 8835903 -very tiny hairs noted to cheeks and chin.-Alida ent to continue spironolac tone therapy and follow up with PCP [id number] Tatyana Juárez MD [facility] [employer] [facility] [place] [address] [place] [address] 01/05/2025 10:54:40 01/13/2025 15:57:33 Dizziness 676857331 R42 26672 [id number] MD Alf Tomas (Adult Med) [address] [place] [address] 02/08/2025 10:15:36 02/09/2025 13:28:57 Hyperlipidemia 70109105 E78.5 ldl 222, started statinpt shown to have atheroscle rosis per LDCT, has been referred to cardio, will repeat lab Mixed anxi ety and depressive disorder 058554615 F41.8 improved on wellbutrin 150 mg SR, pt would like to increase dose, states she i doing much better on it and has slowed down on smoking as well, used in past to quit smoking;de nies SI or HI Excessive growth of facial hair 795545355 L68.2 on aldactone from derm Screening mammography 24 436469 Z12.31 [id number] Tatyana Juárez MD [facility] [employer] - [place] [address] [place] [address] 02/12/2025 11:16:04 02/15/2025 11:47:34 Dyspnea on exertion 06472361 R06.09 R60.0 Z86.16 498001 We will check a proBNP given symptoms of dyspnea and reported findings of pulmonary edema. We will request a transthora cic echocardio gram to assess for structural /valvular heart disease including pulmonary hypertensi on and diastolic dysfunctio n. Patient clinically does not appear markedly volume overloaded and we will hold off on addition of loop diuretics at this juncture. Hyperkalemia 57073241 E8 7.5 9805 Reviewed labs from 02/09/2025 which shows hyperkalem ia 5.7 and creatinine 1.07 with EGFR 58. Encouraged hydration with at least 64 oz water daily. Patient concerned about decreasing spironolac tone without discussing with appropriat e specialist s. I did discuss with her and her significan t other regarding increased risk of cardiac arrhythmia s with hyperkalem ia. She plans to contact her PCP today after the office visit for further directions . Smoker 81785362 F17.200 263972 Discussed cardiovasc ular risks of ongoing nicotine use. Reinforced importance of complete nicotine cessation for cardiovasc ular risk reduction amongst other health benefits. Currently declines need for pharmacoth erapy. Encouraged ongoing discussion s with care team including PCP for additional resources to achieve the goal of complete nicotine cessation. Coronary arteriosclerosis 40127493 I25.118 10001752 Initiate aspirin 81 mg daily. Due to somewhat atypical chest pain obtain treadmill stress test given the interpreta ble EKG and patient reported inability to exercise. Red flag symptoms reviewed. Due to some pleuritic component of chest pain also obtain ESR and CRP to assess for pericardit is We will request follow-up in 6 weeks after above-ment ioned evaluation . [id number] MD [facility] (Adult Med) [address] [place] [address] 03/09/2025 14:46:14 03/11/2025 10:25:30 Costal chondritis 40229246 M94.0 19203 rib tenderness intermitte ntly-advis ed to cone NSAIDs prn Overweight 813609628 E66 .3 advised low fat, low cholestero l diet, regular exercise and weight reduction. [id number] Tatyana Juárez MD [facility] [place] [address] [place] [address] 03/25/2025 10:52:17 03/26/2025 07:20:57 Coronary arteriosclerosis 27922866 I25.10 59526966 Coronary calcificat ion on LDCT chest with low risk findings on stress test. No angina. Medical management after shared decision-m aking. Continue aspirin 81 mg daily. Mixed hyperlipidemia 267 446108 E78.2 67243 Labs from 02/09/2025 with LDL 77, HDL 52. Ongoing dietary modificati ons encouraged . Continue atorvastat in 40 mg daily. Overweight 441638698 E66 .3 95053 Diet/exerc ise modificati ons reinforced . Acute on c hronic diastolic heart failure 417340040 I50.33 761833 Requesting to reinitiate spironolac tone. We will initiate at lower dose of 25 mg daily given previous episodes of hyperkalem ia. Low-potass ium diet reinforced . Check follow-up BMP and proBNP given diastolic dysfunctio n on echocardio gram with findings of lower extremity edema. [id number] Tatyana Juárez MD [facility] - [place] [address] [place] [address] 05/14/2025 10:55:53 06/07/2025 09:39:33 Acute on chronic diastolic heart failure 436766242 I50.33 780837 Requesting to reinitiate spironolac tone. We will initiate at lower dose of 25 mg daily given previous episodes of hyperkalem ia. Low-potass ium diet reinforced . Check follow-up BMP and proBNP given diastolic dysfunctio n on echocardio gram with findings of lower extremity edema. Mixed hyperlipidemia 267 118164 E78.2 18555 Labs from 02/09/2025 with LDL 77, HDL 52. Ongoing dietary modificati ons encouraged . Continue atorvastat in 40 mg daily. Essential hypertension 23227534 I10 12858 Overweight 341853210 E66 .3 G47.09 56501 Smoker 01549079 F17.200 575038 Discussed cardiovasc ular risks of ongoing nicotine use. Reinforced importance of complete nicotine cessation for cardiovasc ular risk reduction amongst other health benefits. Currently declines need for pharmacoth erapy. Encouraged ongoing discussion s with care team including PCP for additional resources to achieve the goal of complete nicotine cessation. [id number] Gagandeep Restrepo MD [facility] [address] [place] [address] 05/24/2025 10:52:22 05/24/2025 11:49:54 Simple chronic bronchitis 04480487 J41.0 2691 Albuterol HFA as needed, PFTs Rheumatoid arthritis 698 88164 M06.9 [id number] not on treatment Crohn's disease 49085782 K50.919 364436482 not on treatment , in remission Tobacco de pendence caused by cigarettes 2878262351 8884152 F17.288 2651099 40PYH, LDCT, counseled to quit 5 min Sleep disorder 83236994 G47.9 35671 Overnight O2 study Health Concerns Section Related Observation LastModified by Organization Detai ls LastModified Time None Recorded Concern Status LastModified by Organization Details LastModified Time None Recorded Advance Directives Directive None Recorded Payers Insurance Date Sequence Insurance Name Policy Number Policy Shaw Covered Member ID Shaw Member ID Guarantor Name 06/07/2025 1 [facility] Luiza Everett Ally [id number] 2 Luiza Everett Blue Ally 08/18/2024 1 [place] [facility] [place] [id number] Luiza Ally [id number] Luiza Everett Blue Ally 12/31/2024 2 *SELF PAY* Ci evgeny Canales Notes Date Note Type Note Provider Name and Address Organization Details Recorded Time 02/12/2025 text/html ROS as noted in the HPI I had the pleasure of seeing this patient as a new consultation for recommendations regarding evaluation and management of cardiac etiology of chest pain and findings of coronary calcification on CT chest. 64-year-old with longstanding history of nicotine use and strong family history of CAD. Following a bout of COVID has been noticing NYHA class 2 dyspnea. Recently was in the emergency room at [facility] where she was told she has findings of pulmonary edema. Doses records are not available for my review. She has also been noticing chest pain which is substernal, occasionally worsened by activity, sharp, occasionally worsened with respiratory variation. She denies any palpitations, presyncope or syncope. Maintained on spironolactone long-term for facial hair growth and noted to have findings of hyperkalemia on labs ordered by PCP on 02/09/2025. Cardiac diagnostics:Twelve lead EKG 01/05/2025: Sinus rhythm, no ST-T changes, no Q-waves LDCT, 01/14/2025: Noncardiac findings per Radiology report. Noted findings of coronary and aortic calcification. Tatyana Juárez MD Attn: Accounting,[address] [facility], [place], [address], [facility] 02/13/2025 09:07:47 03/09/2025 text/html went to [facility] about a month ago due to having chest pain but states ended up her chest was inflamed Amy Sin APN, CHEMICAL PROCESSING SUPERVISOR-C Attn: Accounting,[address] [facility], [place], [address], [facility] 03/10/2025 23:55:25 03/25/2025 text/html ROS as noted in the HPI patient presents for follow-up of chest pain and dyspnea. No dyspnea. No chest pain. Has given up smoking. No palpitations, presyncope or syncope. Blood pressure within normal range. Reports that she is noticing increasing lower extremity edema after discontinuing spironolactone which was previously 300 my mg daily dose by her supervising fire marshal Cardiac diagnostics:Twelve lead EKG 01/05/2025: Sinus rhythm, [...] response to exercise Tatyana Juárez MD Attn: Accounting,[address] [facility], [place], [address], [facility] 03/25/2025 14:02:19 05/24/2025 text/html ROS as noted in the HPI Patient is pleasant 64-year-old female who came to us referred by her wood sawyer for evaluation of sleep disturbances and chronic bronchitis. Patient has 40 pack-year history of smoking. Patient is still actively smoking about 1 pack a day. She does not use any inhaler. She lives in an older house in [place], [place]. She does have a dog who sleeps in her bed. She is up-to-date with COVID-19 vaccine. Patient does report history of chronic cough. Gagandeep Restrepo MD [address] [place], [address], [facility] 05/24/2025 11:37:51 OBGyn Episode No OBEpisode recorded.
--- OUTSIDE RECORDS SUMMARY | 2025-06-19 16:31 | XMS_ITS | Continuity of Care Document ---
Author Organization [facility] Address [address] [place] [address] Care Team Providers Care Supply Chain Technician Name Role Phone AMY SIN Primary Care Provider MAGGY MICHEL Auto Radiator Mechanic TATYANA JUÁREZ Rn Field Assessment No assessment recorded. Plan of Treatment Reminders Order Date Submit Date Provider Last Modified By Organization Details Last Modified Time Details Appointments ANY 15 2025 09:30A M Amy Sin APN, DEBT MANAGEMENT COUNSELOR-C Not available Not available Not available ANY 2025 09:45A M Tatyana Juárez MD Not available Not available Not available ANY 2025 10:10A M Gagandeep Restrepo MD Not available Not available Not available Lab None recorde d. Referral None recorde d. Procedures pulmona ry stress test, simple (PROC) 2024 025 API-[id number] [facility] (Cardio Ekg), [address] [place], [address], 05/24/2025 12:10:46 Surgeries None recorde d. Imaging oximetr y monitor ing overnig ht - Please do testing on room air. 2024 025 NAYA Soares, [address] [facility], [place], [address], 06/16/2025 04:23:15 PFT, complet e - W/ Post Broncho dilator Spirome try 2024 025 [facility] (Cardio Ekg), [address], [place], [address], 06/07/2025 04:30:50 LDCT, chest, for lung cancer screeni ng 2024 025 [place] [facility] Patient Access Centralized Scheduling, Centralized Scheduling, [address] [facility] , [place], [address], 05/26/2025 15:58:55 Medication Orders albuter ol sulfate HFA 90 mcg/act uation aerosol inhaler 2024 [facility] [place], [address], [place], [address], 05/24/2025 11:37:30 Patient TargetsNo targets recorded. Patient Instructions Encounter Date Encounter Id Patient Instructions Last Modified By Organization Details Last Modified Time 05/24/2025 [id number] crohn's disease: care instructions ajamous Not available 05/24/2025 11:37:28 Rheumatoid Arthritis (RA): Care Instructions ajamous Not available 05/24/2025 11:37:28 Reason for Referral None Reported. Results Created Date Observation Date Name Description Value Unit Range Abnormal Flag Note LastModifiedBy Organization Detail LastModifiedTime 05/04/2005/04/2025 BASIC METAB OLIC PANEL (8) interpretati [...] infor miguelito winters may be found at [email or web address]. Not Available [facility] ([facility]) [address] [facility], [place], [address], 05/05/2025 03:36:24 05/04/2005/05/2025 BASIC METAB OLIC PANEL (8) glucose 87 mg/dL 70-99 Not Available [facility] ([facility]) [address] [facility], [place], [address], 05/05/2025 03:36:24 05/04/2005/05/2025 BASIC METAB OLIC PANEL (8) BUN 13 mg/dL 8-27 Not Available [facility] ([facility]) [address] [facility] [place], [address], 05/05/2025 03:36:24 05/04/2005/05/2025 BASIC METAB OLIC PANEL (8) creatinine 0.83 mg/dL 0.57-1 .00 Not Available [facility] ([facility]) [address] [place], [address], 05/05/2025 03:36:24 05/04/2005/05/2025 BASIC METAB OLIC PANEL (8) eGFR 79 mL/mi n/1.7 3 >59 Not Available [facility] ([facility]) [address] [facility], [place], [address], 05/05/2025 03:36:24 05/04/2005/05/2025 BASIC METAB OLIC PANEL (8) BUN/creatini ne ratio 16 12-28 Not Available [facility] ([facility]) [address] [place], [address], 05/05/2025 03:36:24 05/04/2005/05/2025 BASIC METAB OLIC PANEL (8) sodium 143 mmol/ L 134-14 4 Not Available [facility] ([facility]) [address] [place], [address], 05/05/2025 03:36:24 05/04/20 25 05/05/2025 BASIC METAB OLIC PANEL (8) potassium 4.8 mmol/ L 3.5-5. 2 Not Available [facility] ([facility]) [address] [facility], [place], [address], 05/05/2025 03:36:24 05/04/20 25 05/05/2025 BASIC METAB OLIC PANEL (8) chloride 106 mmol/ L 96-106 Not Available [facility] ([facility]) [address] [facility], [place], [address], 05/05/2025 03:36:24 05/04/2005/05/2025 BASIC METAB OLIC PANEL (8) carbon dioxide, total 22 mmol/ L 20-29 Not Available [facility] ([facility]) [address] [facility], [place], [address], 05/05/2025 03:36:24 05/04/2005/05/2025 BASIC METAB OLIC PANEL (8) calcium 9.8 mg/dL 8.7-10 .3 Not Available [facility] ([facility]) [address] [facility], [place], [address], 05/05/2025 03:36:24 06/10/20 25 06/01/2025 pulse oxime try (PROC ) No observ ation record ed. ajamous Not Available 2024 10:02:41 Result Notes None recorded. Problems Name Problem SNOMED Code Status Onset Date Resolution Date Notes Provider Name and Address Organization Details Recorded Time Excessive growth of facial hair 622962310 Active 2024 Amy Sin APN, HOMER-C Attn: Quynh coreas,[address] [place], [address], [facility] 14:40:01 Smoker 32284971 Active 2024 Amy Sin APN, DEBT MANAGEMENT COUNSELOR-C Attn: Quynh coreas,[address] [place], [address], [facility] 5 14:41:02 Overweight 371730688 Active 2024 Amy Sin APN, FNP-C Attn: Josejose coreas,[address] [facility], [place], [address], [facility] 5 14:41:04 Right upper quadrant pain 220783236 Active 2024 Amy Sin APN DEBT MANAGEMENT COUNSELOR-C Attn: Quynh joss,[address] [facility], [place], [address], [facility] 5 13:17:22 Hyperlipidemia 99480036 Active 2024 Amy Sin APN, FNP-C Attn: Quynh joss,[address] [facility], [place], [address], [facility] 5 10:43:50 Mixed anxiety and depressive disorder 668951403 Active 2024 Amy Sin APN, FNP-C Attn: Josejose coreas,[address] [facility], [place], [address], [facility] 5 10:45:04 Acute on chronic diastolic heart failure 598269627 Active 2024 Tatyana Juárez MD Attn: Josejose coreas,[address] [facility], [place], [address], [facility] 5 11:26:24 Problem Notes None recorded. Procedures Surgical History Date Name Laterality Status Provider Name and Address Organization Details Recorded Time 07/22/18 96 Total hysterectomy completed JAX Renee [facility] 08/11/2024 14:15:23 Imaging Results None recorded. Procedure [...] Updated DateTime 5 163.83 cm 27.7 kg/m2 78462.1 5 g 97.2 [degF] 18 /min 100 % 74 /min 0 122/74 mm[Hg] Candy Gao LPN ID - [facility] 11:19:36 Social History Question Answer Notes LastModified by Organizat ion Details LastModified Time Tobacco Smoking Status Former Smoker quit 02/10/25 BARBARA Velasco, [place] - [facility] 03/09/2025 15:06:30 Are You Blind [...] anxious, or unable to sleep at night)? [id number] Information not available 02/08/2025 Family History Relationship [...] Reflux (GERD) N Cancer Y Stroke N Headaches N Kidney or Bladder Problems N Have you had a mammogram in the last yea r? N Eating Disorder N Skin Problems N Asthma N Allergies Y Substance Abuse N Hepatitis N High Cholesterol N Liver Disease N Schizophrenia N Thyroid Problems N GI Problems Y Anemia N Heart Attack ([place]) N Diabetes N Seizures/Epilepsy N Have you had a colonoscopy in the last 1 0 years? N Heart Failure N Osteoporosis N Gynecological [...] Time zoster recombinant 9 completed Amy Sin, KISS MACHINE OPERATOR, DEBT MANAGEMENT COUNSELOR-C Attn: [address] [place], [place], [address] [place] [address], [place] [facility] 08/11/2024 14:38:28 COVID-19, mRNA, LNP-S, PF, 30 mcg/0.3 mL dose 1 completed Amy Sin KISS MACHINE OPERATOR, DEBT MANAGEMENT COUNSELOR-C Attn: [address] [place], [address], [place] [facility] 08/11/2024 14:38:28 COVID-19, mRNA, LNP-S, PF, 30 mcg/0.3 mL dose 1 completed Amy Sin, KISS MACHINE OPERATOR, DEBT MANAGEMENT COUNSELOR-C Attn: [address] [place], [address], [place] [facility] 08/11/2024 14:38:28 pneumococcal polysaccharide PPV23 9 completed Amy Sin, KISS MACHINE OPERATOR, DEBT MANAGEMENT COUNSELOR-C Attn: Accounting,[address] [facility], [place], [place], [address] [place] [address], [facility] 08/11/2024 14:38:28 Tdap 9 completed Amy Sin, KISS MACHINE OPERATOR, DEBT MANAGEMENT COUNSELOR-C Attn: Accounting,[address] [facility], [place], [place], [address] [place] [address], [facility] 08/11/2024 14:38:28 Influenza, split virus, trivalent, PF 5 completed Amy Sin, KISS MACHINE OPERATOR, DEBT MANAGEMENT COUNSELOR-C Attn: Accounting,[address] [facility], [place], [place], [address] [place] [address], [facility] 08/11/2024 14:38:28 Hep A, ped/adol, 2 dose 0 completed Amy Sin, KISS MACHINE OPERATOR, DEBT MANAGEMENT COUNSELOR-C Attn: Accounting,[address] [facility], [place], [place], [address] [place] [address], [facility] 08/11/2024 14:38:28 Influenza, split virus, quadrivalent, PF 9 completed Amy Sin, KISS MACHINE OPERATOR, DEBT MANAGEMENT COUNSELOR-C Attn: Accounting,[address] [facility], [place], [place], [address] [place] [address], [facility] 08/11/2024 14:38:28 Tdap 5 completed Not Available [facility] 05/14/2025 10:59:14 Influenza, split virus, trivalent, preservative 5 completed Amy Sin, KISS MACHINE OPERATOR, DEBT MANAGEMENT COUNSELOR-C Attn: Accounting,[address] [facility], [place], [place], [address] [place] [address], [facility] 08/12/2024 13:16:42 Pneumococcal conjugate PCV20, polysaccharide SVP078 conjugate, adjuvant, PF 5 completed Amy Sin, KISS MACHINE OPERATOR, DEBT MANAGEMENT COUNSELOR-C Attn: Accounting,[address] [facility], [place], [place], [address] [place] [address], [facility] 08/12/2024 13:16:42 Past Encounters Encounter ID Performer Location Encounter Start Date Encounter Closed Date Diagnosis/Indication Diagnosis SNOMED-CT Code Diagnosis ICD10 Code Diagnosis IMO Codes Diagnosis Note [id number] Tatyana Juárez MD [facility] [place] [facility] [address] [place] [address] 05/14/2025 10:55:53 06/07/2025 09:39:33 Acute on chronic diastolic heart failure 443872094 I50.33 [id number] Requesting to reinitiate spironolac tone. We will initiate at lower dose of 25 mg daily given previous episodes of hyperkalem ia. Low-potass ium diet reinforced . Check follow-up BMP and proBNP given diastolic dysfunctio n on echocardio gram with findings of lower extremity edema. Mixed hyperlipidemia 267 225709 E78.2 94945 Labs from 02/09/2025 with LDL 77, HDL 52. Ongoing dietary modificati ons encouraged . Continue atorvastat in 40 mg daily. Essential hypertension 29685456 I10 65015 Overweight 985761697 E66 .3 G47.09 64554 Smoker 79764407 F17.200 569244 Discussed cardiovasc ular risks of ongoing nicotine use. Reinforced importance of complete nicotine cessation for cardiovasc ular risk reduction amongst other health benefits. Currently declines need for pharmacoth erapy. Encouraged ongoing discussion s with care team including PCP for additional resources to achieve the goal of complete nicotine cessation. [id number] Gagandeep Restrepo MD [facility] [address] [address] 05/24/2025 10:52:22 05/24/2025 11:49:54 Simple chronic bronchitis 85083454 J41.0 2691 Albuterol HFA as needed, PFTs Rheumatoid arthritis 698 93206 M06.9 3702694743 not on treatment Crohn's disease 82741752 K50.919 444312628 not on treatment , in remission Tobacco de pendence caused by cigarettes 6662859851 2918058 F17.547 5871196 40PYH, LDCT, counseled to quit 5 min Sleep disorder 76102547 G47.9 95858 Overnight O2 study Health Concerns Section Related Observation LastModified by Organization Detai ls LastModified Time None Recorded Concern Status LastModified by Organization Details LastModified Time None Recorded Payers Encounter Date Sequence Insurance Name Policy Number Policy Shaw Covered Member ID Shaw Member ID Guarantor Name 05/24/2025 1 [facility] Luiza Everett Ally [id number] Luiza Karlos [employer] [place] Notes Date Note Type Note Provider Name and Address Organization Details Recorded Time 05/24/2025 text/html ROS as noted in the HPI Patient is pleasant 64-year-old female who came to us referred by her lap winding machine operator for evaluation of sleep disturbances and chronic bronchitis. Patient has 40 pack-year history of smoking. Patient is still actively smoking about 1 pack a day. She does not use any inhaler. She lives in an older house in [place], [place]. She does have a dog who sleeps in her bed. She is up-to-date with COVID-19 vaccine. Patient does report history of chronic cough. Gagandeep Restrepo MD [address] [place], [address], [facility] 05/24/2025 11:37:51 OBGyn Episode No OBEpisode recorded.
--- OUTSIDE RECORDS SUMMARY | 2025-06-19 16:32 | XMS_ITS | Clinical Summary ---
Author Organization [facility] Address [address] [place] [address] Care Team Providers Care Research Clerk Name Role Phone Amy De Jesus JJ Primary Care Provider [phone] Social History Tobacco Use Types Packs/Day Years Used Date Smoking Tobacco: Never Assessed Comments Unknown Sex and Gender Information Value Date Recorded Sex Assigned at Female 08/19/2024 2:02 PM ANY COMMODITY BUYER Legal Sex Female 11:59 AM ANY COMMODITY BUYER Gender Identity Not on file Sexual Orientation Not on file Plan of Treatment Health Maintenance Due Date Last Done Comments Cervical Cancer Screening Pa p Smear (Age 30 to 64) Every 3 Years 1961 Colorectal Cancer Screening Colonoscopy (10 Years) 1961 Annual Physical 1964 Hepatitis C 1979 Cervical Cancer Screening Pa p with HPV Testing (Age 30 to 64) Every 5 Years 1991 Cervical Cancer Screening wi th HPV 1991 Mammogram Screening 2001 Zoster Vaccines (2 of 2) 06/17/2019 04/22/2019 COVID-19 Vaccine (3 - 2024-2 6 season) 2025 03/15/2021, 02/22/2021 Influenza Adult (#1) 2025 08/11/2024, 04/22/2019, 05/03/2015 DTaP, Tdap and Td Vaccines ( 2 - Td or Tdap) 04/22/2029 04/22/2019 RSV Immunization or 60+ Years (1 - 1-dose 75+ series) 2036 Hepatitis A Vaccines Aged Out 07/31/1999 No long er eligible based on patient's age to complete this topic Pneumococcal Vaccine: 50+ Years Completed 08/11/2024, 04/29/2019 Meningococcal B Vaccine Aged Out No l onger eligible based on patient's age to complete this topic Meningococcal Vaccine Aged Out No efraín mary eligible based on patient's age to complete this topic RSV Immunizations Under 20 Months Aged Out No longer eligible b ased on patient's age to [place] [address] [facility] Care [facility] Research Clerk Relationship Specialty Start Date End Date Amy De Jesus APNP PCP - General NURSE PRACTITIONER 08/19/24
--- OUTSIDE RECORDS SUMMARY | 2025-06-19 16:32 | XMS_ITS | Clinical Summary ---
Author Organization [facility] Address [address] [facility] [place] [address] Care Team Providers Care Control Panel Builder Name Role Phone Barron Smalls MD Primary Care Provider [phone] Jeremías Estrada MD Unavailable [phone] Source Comments [facility],non-owned Affiliates and Associated Physician Practices is amultiple site organization consisting of ambulatory clinics and hospital sitesin [place], [place], [place] and [place]. This disclosure is being madepursuant to the Care Everywhere program and may not contain all information available regarding this patient. Last updated 18.[facility] Allergies Active Allergy Reactions Criticality Noted Date [...] mg by mouth once daily. Active Multiple Vitamins-Daniels als (HAIR/SKIN/BIN LS PO) Take by mouth once daily. 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
--- OUTSIDE RECORDS SUMMARY | 2025-06-19 16:32 | XMS_ITS | Continuity of Care Document ---
Author Organization [place] [facility], [facility] [place] [address] [place] [id number] Care Team Providers Care Nuclear Security Officer Name Role Phone AMY SIN Primary Care Provider [phone] MAGGY MICHEL Trim Setter TATYANA JUÁREZ Colorist Photography Assessment No assessment recorded. Plan of Treatment Reminders Order Date Submit Date Provider Last Modified By Organization Details Last Modified Time Details Appointments ANY 15 2025 09:30A M Amy Sin INSTRUMENT ADJUSTER, PLASTERING SUPERVISOR-C Not available Not available Not available ANY 2025 09:45A M Tatyana Juárez MD Not available Not available Not available ANY 2025 10:10A M Gagandeep Restrepo MD Not available Not available Not available Lab BMP, serum or plasma 2024 025 [facility], [address] [place] [address], [address], 06/15/2025 07:44:06 Referral sleep medicin e referra l - Plz eval and Rx for SCOTT 2024 025 [email or web address] Gagandeep Restrepo MD, [address] [facility], [place], [address], 05/20/2025 11:04:45 Procedures None recorde d. Surgeries None recorde d. Imaging None recorde d. Medication Orders furosem gareth 20 mg tablet 2024 025 [facility], [address], [place], [address], 05/14/2025 11:13:00 Patient TargetsNo targets recorded. Patient Instructions Encounter Date Encounter Id Patient Instructions Last Modified By Organization Details Last Modified Time 05/14/2025 [id number] Quitting Tobacco : Care Instructions Not available 05/14/2025 11:12:58 Reason for Referral Sleep Medicine Referral for [...] at [email or web address]. Not Available [facility] ([facility]) [address] [facility], [place], [address], 05/05/2025 03:36:24 05/04/2005/05/2025 BASIC METAB OLIC PANEL (8) glucose 87 mg/dL 70-99 Not Available [facility] ([facility]) [address] [facility], [place], [address], 05/05/2025 03:36:24 05/04/2005/05/2025 BASIC METAB OLIC PANEL (8) BUN 13 mg/dL 8-27 Not Available [facility] ([facility]) [address] [place], [address], 05/05/2025 03:36:24 05/04/2005/05/2025 BASIC METAB OLIC PANEL (8) creatinine 0.83 mg/dL 0.57-1 .00 Not Available [facility] ([facility]) [address] [facility], [place], [address], 05/05/2025 03:36:24 05/04/2005/05/2025 BASIC METAB OLIC PANEL (8) eGFR 79 mL/mi n/1.7 3 >59 Not Available [facility] ([facility]) [address] [place], [address], 05/05/2025 03:36:24 05/04/2005/05/2025 BASIC METAB OLIC PANEL (8) BUN/creatini ne ratio 16 12-28 Not Available [facility] ([facility]) [address] [place], [address], 05/05/2025 03:36:24 05/04/2005/05/2025 BASIC METAB OLIC PANEL (8) sodium 143 mmol/ L 134-14 4 Not Available [facility] ([facility]) [address] [place], [address], 05/05/2025 03:36:24 05/04/2005/05/2025 BASIC METAB OLIC PANEL (8) potassium 4.8 mmol/ L 3.5-5. 2 Not Available [facility] ([facility]) [address] [place], [address], 05/05/2025 03:36:24 05/04/2005/05/2025 BASIC METAB OLIC PANEL (8) chloride 106 mmol/ L 96-106 Not Available [facility] ([facility]) [address] [place], [address], 05/05/2025 03:36:24 05/04/2005/05/2025 BASIC METAB OLIC PANEL (8) carbon dioxide, total 22 mmol/ L 20-29 Not Available [facility] ([facility]) [address] [place], [address], 05/05/2025 03:36:24 05/04/2005/05/2025 BASIC METAB OLIC PANEL (8) calcium 9.8 mg/dL 8.7-10 .3 Not Available [facility] ([facility]) [address] [place], [address], 05/05/2025 03:36:24 06/14/2006/15/2025 BASIC METAB OLIC PANEL (8) glucose 89 mg/dL 70-99 Not Available [facility] ([facility]) [address] [place], [address], 06/15/2025 07:44:06 06/14/2006/15/2025 BASIC METAB OLIC PANEL (8) BUN 16 mg/dL 8-27 Not Available [facility] ([facility]) [address] [place], [address], 06/15/2025 07:44:06 06/14/2006/15/2025 BASIC METAB OLIC PANEL (8) creatinine 0.88 mg/dL 0.57-1 .00 Not Available [facility] ([facility]) [address] [place], [address], 06/15/2025 07:44:06 06/14/2006/15/2025 BASIC METAB OLIC PANEL (8) eGFR 74 mL/mi n/1.7 3 >59 Not Available [facility] ([facility]) [address] [place], [address], 06/15/2025 07:44:06 06/14/2006/15/2025 BASIC METAB OLIC PANEL (8) BUN/creatini ne ratio 18 12-28 Not Available [facility] ([facility]) [address] [place], [address], 06/15/2025 07:44:06 06/14/2006/15/2025 BASIC METAB OLIC PANEL (8) sodium 141 mmol/ L 134-14 4 Not Available [facility] ([facility]) [address] [place], [address], 06/15/2025 07:44:06 06/14/2006/15/2025 BASIC METAB OLIC PANEL (8) potassium 5.1 mmol/ L 3.5-5. 2 Not Available [facility] ([facility]) [address] [facility], [place], [address], 06/15/2025 07:44:06 06/14/2006/15/2025 BASIC METAB OLIC PANEL (8) chloride 104 mmol/ L 96-106 Not Available [facility] ([facility]) [address] [place], [address], 06/15/2025 07:44:06 06/14/2006/15/2025 BASIC METAB OLIC PANEL (8) carbon dioxide, total 25 mmol/ L 20-29 Not Available [facility] ([facility]) [address] [place], [address], 06/15/2025 07:44:06 06/14/2006/15/2025 BASIC METAB OLIC PANEL (8) calcium 9.7 mg/dL 8.7-10 .3 Not Available [facility] ([facility]) [address] [place], [address], 06/15/2025 07:44:06 06/10/2006/01/2025 pulse oxime try (PROC ) No observ ation record ed. ajamous Not Available 2024 10:02:41 Result Notes None recorded. Problems Name Problem SNOMED Code Status Onset Date Resolution Date Notes Provider Name and Address Organization Details Recorded Time Excessive growth of facial hair 710531928 Active 2024 Amy Sin APN, FNP-C Attn: Quynh joss,[address] [facility], [place], [place], [address] [place] [address] 2, [facility] 5 14:40:01 Smoker 71131582 Active 2024 Amy Sin APN, FNP-C Attn: Quynh joss,[address] [facility], [place], [place], [address] [place] [address] 2, [facility] 5 14:41:02 Overweight 018466995 Active 2024 Amy Sin APN, FNP-C Attn: Quynh joss,[address] [facility], [place], [place], [address] [place] [address] 2, [facility] 5 14:41:04 Right upper quadrant pain 182574606 Active 2024 Amy Sin APN, FNP-C Attn: Quynh joss,[address] [facility], [place], [place], [address] [place] [address] 2, [facility] 5 13:17:22 Hyperlipidemia 03733877 Active 2024 Amy Sin APN, FNP-C Attn: Quynh joss,[address] [facility], [place], [place], [address] [place] [address] 2, [facility] 5 10:43:50 Mixed anxiety and depressive disorder 738963776 Active 2024 Amy Sin APN, FNP-C Attn: Quynh joss,[address] [facility], [place], [address], [facility] 5 10:45:04 Acute on chronic diastolic heart failure 483858339 Active 2024 Tatyana Juárez MD Attn: Quynh joss,[address] [facility], [place], [address], [facility] 5 11:26:24 Problem Notes None recorded. Procedures Surgical History Date Name Laterality Status Provider Name and Address Organization Details Recorded Time 07/22/18 96 Total hysterectomy completed JAX Renee [place] - [facility] 08/11/2024 14:15:23 Imaging Results None recorded. Procedure [...] and Address Organization Details Last Updated DateTime 163.83 cm 27.4 kg/m2 73602.9 6 g 72 /min 97 % 110/68 mm[Hg] mAanda Godinez MA [facility] 5 11:05:52 Date Recorded Body height Body mass index (BMI) Body weight Body temperature Respiratory rate Oxygen saturation Heart rate Pain severity - 0-10 verbal numeric rating [Score] - Reported Systolic And Diastolic Provider Name and Address Organization Details Last Updated DateTime 163.83 cm 27.7 kg/m2 67102.1 5 g 97.2 [degF] 18 /min 100 % 74 /min 0 122/74 mm[Hg] Candy Gao LPN [facility] 5 11:19:36 Social History Question Answer Notes LastModified by Organizat ion Details LastModified Time Tobacco Smoking Status Former Smoker quit 02/10/25 Glenny Cordova MA [facility], [place] [facility] 03/09/2025 15:06:30 Are You Blind Or Do You Have Difficulty Seeing? No Information not available 08/11/2024 What Is Your Level Of Caffeine Consumption? Moderate Coffee Information not available 01/01/2025 In The 14 Days Before Symptom Onset, Have You Had Close Contact With A Laboratory-jose alfredo hdezed COVID-19 While That Case Was Ill? No [...] anxious, or unable to sleep at night)? [id number] Information not available 02/08/2025 Family History Relationship [...] Eating Disorder N Anemia N Heart Attack ([place]) N Anxiety Disorder N Diabetes N Muscle, [...] Time zoster recombinant 9 completed Amy Sin, INSTRUMENT ADJUSTER, PLASTERING SUPERVISOR-C Attn: Accounting,[address] [facility], [place], [place], [address] [place] [address], [place] [facility] 08/11/2024 14:38:28 COVID-19, mRNA, LNP-S, PF, 30 mcg/0.3 mL dose 1 completed Amy iSn, INSTRUMENT ADJUSTER, PLASTERING SUPERVISOR-C Attn: Accounting,[address] [facility], [place], [place], [address] [place] [address], [place] [facility] 08/11/2024 14:38:28 COVID-19, mRNA, LNP-S, PF, 30 mcg/0.3 mL dose 1 completed Amy Sin, INSTRUMENT ADJUSTER, PLASTERING SUPERVISOR-C Attn: Accounting,[address] 1 [facility], [place], [place], [address] [place] [address], [facility] 08/11/2024 14:38:28 pneumococcal polysaccharide PPV23 9 completed Amy Sin, INSTRUMENT ADJUSTER, PLASTERING SUPERVISOR-C Attn: Accounting,204 1 [facility], [place], [place], [address] [place] [address], [facility] 08/11/2024 14:38:28 Tdap 9 completed Amy Sin, INSTRUMENT ADJUSTER, PLASTERING SUPERVISOR-C Attn: Accounting,[address] 1 [facility], [place], [place], [address] [place] [address], [place] [facility] 08/11/2024 14:38:28 Influenza, split virus, trivalent, PF 5 completed Amy Sin, INSTRUMENT ADJUSTER, PLASTERING SUPERVISOR-C Attn: Accounting,[address] 1 [facility], [place], [place], [address] [place] [address], [place] [facility] 08/11/2024 14:38:28 Hep A, ped/adol, 2 dose 0 completed Amy Sin, INSTRUMENT ADJUSTER, PLASTERING SUPERVISOR-C Attn: Accounting,[address] 1 [facility], [place], [place], [address] [place] [address], [place] [facility] 08/11/2024 14:38:28 Influenza, split virus, quadrivalent, PF 9 completed Amy Sin APN, PLASTERING SUPERVISOR-C Attn: Accounting,[address] [facility], [place], [address], [facility] 08/11/2024 14:38:28 Tdap 5 completed Not Available [facility] 05/14/2025 10:59:14 Influenza, split virus, trivalent, preservative 5 completed Amy Sin INSTRUMENT ADJUSTER, PLASTERING SUPERVISOR-C Attn: Accounting,[address] [facility], [place], [address], [facility] 08/12/2024 13:16:42 Pneumococcal conjugate PCV20, polysaccharide [id number] conjugate, adjuvant, PF 5 completed Amy Sin APN, PLASTERING SUPERVISOR-C Attn: Accounting,[address] [facility], [place], [address], [facility] 08/12/2024 13:16:42 Past Encounters Encounter ID Performer Location Encounter Start Date Encounter Closed Date Diagnosis/Indication Diagnosis SNOMED-CT Code Diagnosis ICD10 Code Diagnosis IMO Codes Diagnosis Note [id number] Tatyana Juárez MD [facility] [address] [place] [phone] 05/14/2025 10:55:53 06/07/2025 09:39:33 Acute on chronic diastolic heart failure 027069086 I50.33 [id number] Requesting to reinitiate spironolac tone. We will initiate at lower dose of 25 mg daily given previous episodes of hyperkalem ia. Low-potass ium diet reinforced . Check follow-up BMP and proBNP given diastolic dysfunctio n on echocardio gram with findings of lower extremity edema. Mixed hyperlipidemia 267 617765 E78.2 32563 Labs from 02/09/2025 with LDL 77, HDL 52. Ongoing dietary modificati ons encouraged . Continue atorvastat in 40 mg daily. Essential hypertension 55001588 I10 87547 Overweight 768727806 E66 .3 G47.09 59035 Smoker 74966274 F17.200 136866 Discussed cardiovasc ular risks of ongoing nicotine use. Reinforced importance of complete nicotine cessation for cardiovasc ular risk reduction amongst other health benefits. Currently declines need for pharmacoth erapy. Encouraged ongoing discussion s with care team including PCP for additional resources to achieve the goal of complete nicotine cessation. Health Concerns Section Related Observation LastModified by Organization Detai ls LastModified Time None Recorded Concern Status LastModified by Organization Details LastModified Time None Recorded Payers Encounter Date Sequence Insurance Name Policy Number Policy Shaw Covered Member ID Shaw Member ID Guarantor Name 05/14/2025 1 [facility] Luiza Everett Ally [id number] 2 Luiza Everett [place] 05/14/2025 2 *SELF PAY* Ci evgeny Karlos [place] Notes Date Note Type Note Provider Name and Address Organization Details Recorded Time 05/24/2025 text/html ROS as noted in the HPI Patient is pleasant 64-year-old female who came to us referred by her electronic parts salesperson for evaluation of sleep disturbances and chronic bronchitis. Patient has 40 pack-year history of smoking. Patient is still actively smoking about 1 pack a day. She does not use any inhaler. She lives in an older house in [place], [place]. She does have a dog who sleeps in her bed. She is up-to-date with COVID-19 vaccine. Patient does report history of chronic cough. Gagandeep Restrepo MD [address] [place], [address], [facility] 05/24/2025 11:37:51 OBGyn Episode No OBEpisode recorded.
[2025-06-19 16:36] VITALS: BP 131/81; PULSE 88; RESP 18; TEMP 36.3; O2SAT 98
--- NOTE | 2025-06-19 17:11 | ED.FEMALEGU ---
HPI - Female Genitourinary General Chief complaint: Urogenital-Female Stated complaint: sore inside vagina Time Seen by Provider: 06/19/25 16:35 Source: patient and RN notes reviewed Mode of arrival: ambulatory Limitations: no limitations History of Present Illness HPI Narrative: 64-year-old female patient presents Express Care complaining of sores on her vagina. She noticed a yesterday. Patient says she recently intercourse with her spouse 3-4 days ago. She does a sore yesterday on the left side of her lower vagina. Patient also feels like there is a bump on the inside of her left side of her vagina. Patient reports pain. Patient denies any pelvic pain, abdominal pain, vaginal bleeding, vaginal discharge, urinary symptoms, fevers, body aches, chills, foreign body sensation. Patient denies any concerns of STDs. Patient reports having history of hysterectomy. Related Data Home Medications ?Medication ?Instructions ?Recorded ?Confirmed ?Last Taken ?Type atorvastatin 80 mg tablet mg 12/21/24 Unknown History aspirin 81 mg tablet,delayed mg 06/19/25 Unknown History release bupropion HCl 200 mg tablet,12 hr mg PO 06/19/25 Unknown History sustained-release dupilumab 300 mg/2 mL subcutaneous mg subcut 06/19/25 Unknown History pen injector (Dupixent) furosemide 20 mg tablet mg 06/19/25 Unknown History Allergies Allergy/AdvReac Type Severity Reaction Status Date / Time No Known Allergies Allergy Verified 06/19/25 16:38 Review of Systems Review of Systems: CONSTITUTIONAL: Denies fever, chills, or sweats. EYES: Denies visual changes, redness, or discharge. ENT: Denies rhinorrhea, congestion, sore throat, or otalgia. CARDIOVASCULAR: Denies chest pain, palpitations, or edema. RESPIRATORY: Denies cough or dyspnea. GASTROINTESTINAL: Denies abdominal pain, nausea, vomiting, or diarrhea. GENITOURINARY: Denies dysuria, vaginal bleeding vaginal discharge, pelvic pain, Or hematuria. Positive for vaginal sores. SKIN: Denies rash or itching. MUSCULOSKELETAL: Denies back pain, joint pain, or myalgia. NEUROLOGIC: Denies headache, numbness, or weakness. PSYCHIATRIC: Denies anxiety or depression. All other systems reviewed are negative, except as documented in HPI. [facility] Past Medical History Medical History Bronchitis Ear infection Sinusitis Rheumatoid arthritis Crohn's disease of both small and large intestine without complication Surgical History Surgical History H/O total hysterectomy Social History Social History Smoking packs per day: 1 Smoking cigarettes per day: 20.0 Years smoked: 35 Smoking pack-years: 35.00 Smoking status: Current every day smoker Tobacco type: cigarettes Alcohol intake: current Alcohol use details: rare social Substance use type: does not use Living arrangements: with family Gender identity (if verbalized by the patient): Female Comments At the time of my signature, I reviewed and agree with the nursing past medical, surgical, social, and family history. There is no relevant family history pertinent to the patient complaint. Exam Narrative: GENERAL: This is a well-nourished, well-developed adult, in no apparent distress. They are non ill-appearing, nontoxic appearing. HEAD: normocephalic, atraumatic. EYES: Sclera clear/white. Conjunctiva normal. Vision is grossly intact. Extraocular movements intact EARS: External ears normal, Hearing grossly intact. NOSE: External nose normal THROAT: Mucous membranes moist, NECK: Neck supple, non-tender without lymphadenopathy, masses or thyromegaly. CARDIOVASCULAR: Regular rate and rhythm RESPIRATORY: Respiratory rate normal, respiratory effort nonlabored, no respiratory distress GASTROINTESTINAL: Abdomen soft, non-tender, nondistended. GENITOURINARY: External vagina: There is a single erythematous vesicular ulceration to the left lower vulva. It is tender to palpate. No other suspicious lesions or masses sign visualized. Speculum exam: Vaginal canal mildly erythemic and swollen. No cystocele or prolapse identified. No cervix visualized. White discharge present. Bimanual exam not performed. SKIN: warm, Dry, intact with no suspicious lesions or rash, good texture and turgor. NEURO: awake, alert, and oriented to person, place and time. There were no obvious focal neurologic abnormalities. EXTREMITIES: No joint tenderness, effusion, or edema noted. BACK: Nontender without deformity. Course Course Emergency Course: Portions of this record may have been created with voice recognition software Level of Care: Express Care Visit Vital Signs Vital signs: Vital Signs Temperature 97.4 F L 06/19/25 16:36 Pulse Rate 88 06/19/25 16:36 Respiratory Rate 18 06/19/25 16:36 Blood Pressure 131/81 06/19/25 16:36 Pulse Oximetry 98 06/19/25 16:36 Oxygen Delivery Room Air 06/19/25 16:36 Temperature 97.4 F L 06/19/25 16:36 Pulse Rate 88 06/19/25 16:36 Respiratory Rate 18 06/19/25 16:36 Blood Pressure 131/81 06/19/25 16:36 Pulse Oximetry 98 06/19/25 16:36 Oxygen Delivery Room Air 06/19/25 16:36 Reviewed MDM - Female Genitourinary MDM Narrative Medical decision making narrative: Single ulceration to the left lower vagina. Cannot exclude herpes. Vaginal exam without any evidence bladder prolapse, patient does not have a uterus. White discharge present in canal, canal appears mildly erythemic and swollen. Chlamydia, gonorrhea, Trichomonas, bacterial vaginosis, genital culture are pending. Herpes culture pending as well. Patient like to go ahead and start therapy for herpes. Valacyclovir sent to pharmacy. Patient does not have an OB, she was given the on-call OBGYN to follow-up with. Discussed physical exam findings. Advised supportive measures and signs/symptoms to go to the ER. Pt is appropriate for outpt treatment and f/u. Differential Diagnosis Differential diagnosis: Likely bacterial vaginosis, cervicitis, vaginitis, cyst of Bartholin's gland and other (Herpes, cystocele) Lab Data Attestation: I reviewed the patient's lab results. Labs: Lab Results 06/19/25 Range/Units 16:55 HSV I DNA PCR Pending HSV II DNA PCR Pending Critical Care Time Critical Care Time Critical Care Time: No Discharge Plan Discharge Clinical Impression: Vaginal sore Patient Disposition: Home Condition: Stable Instructions: Antibiotic Form, Genital Herpes Infection (ED) Additional Instructions: Take valacyclovir as directed. Swabs have been sent off to test for a genital culture, herpes, bacterial vaginosis, gonorrhea, chlamydia, and trichomonas infections. ?These tests can take up to 1-3 days to come back. Herpes may take up the 7 days a come back. You Will be notified the results once they have resulted. Please remain abstinent until you know your results or have completed full treatment for an STD. Follow-up with PCP in 3-5 days. If your symptoms worsen, you developed fever, abdominal pain, nausea, vomiting, vaginal bleeding, pelvic pain or any other concerns please go to the ER immediately. Patient Language: Jordanian Prescriptions: New valacyclovir 1 gram tablet 1,000 mg PO Q12H 7 Days Qty: 14 0RF No Action atorvastatin 80 mg tablet aspirin 81 mg tablet,delayed release (DR/EC) furosemide 20 mg tablet bupropion HCl 200 mg tablet sustained-release 12 hr PO Dupixent Pen 300 mg/2 mL pen injector SUBCUT Follow-up/Referrals: De Jesus,Amy Martinez APN [Primary Care Provider, Unknown] Nick Dueñas MD [Physician, DATA MIGRATION CONSULTANT] - 3 Days Time of Disposition: 17:05
[2025-06-20 19:25] LABS: Trichomonas Vag PCR NOT DETECTED (NOT DETECTE)
[2025-06-22 23:07] LABS: HSV-1 DNA Negative (Negative); HSV-2 DNA Positive (Negative)
== END 2025-06-19 17:13 | disposition home or self-care (01) ==
PROVIDERS: PCP Nurse Practitioner Family
DX: N76.89 Other specified inflammation of vagina and vulva (principal); Z11.3 Encounter for screening for infections with a predominantly sexual mode of transmission; F17.210 Nicotine dependence, cigarettes, uncomplicated; M06.9 Rheumatoid arthritis, unspecified; Z90.710 Acquired absence of both cervix and uterus; Z79.82 Long term (current) use of aspirin
CPT/HCPCS: 86615; 87491; 87529; 87591; 87661; 87798; 99214; G0463